=== PATIENT | male | born 1940 | race Caucasian/White ===

== ENCOUNTER 2017-06-28 19:38 | Emergency (ER) | payer MEDICARE, OTHER ==
[~2017-06-28] VITALS: Ht 172.7 cm; Wt 81.7 kg
[~2017-06-28 19:38] MED LIST: ASPIRIN EC81 MG PO; BETHANECHOL CHL25 MG PO; COZAAR50 MG PO; FLOMAX0.4 MG PO; GLIPIZIDE XL5 MG PO; KEFLEX500 MG PO; LANTUS SOL100 UNIT/1 SUB-Q; LASIX20 MG PO; METFORMIN HCL500 MG PO; METOPROLOL TART25 MG PO; NORCO 5-325 TA1 EACH PO; NOVOLIN N100 UNIT/1 SQ; NOVOLOG100 UNITS/ SUB-Q; PROTONIX40 MG PO; REQUIP0.25 MG PO; SIMVASTATIN20 MG PO
--- NOTE | 2017-06-28 22:27 | EKG ---
[facility] [address] [facility] [place] [address] Signed Sinus rhythm with premature atrial complexes in a pattern of bigeminy ST \T\ T wave abnormality, consider inferior ischemia Abnormal ECG No previous ECGs available Confirmed by DRAGAN BHAKTA MD ([id number]) on 06/28/2017 10:26:49 PM Electronically Signed By: DRAGAN BHAKTA MD 06/28/17 2227 PATIENT NAME: MICHELLE FELIX Electrocardiogram DATE OF : 40 PHYSICIAN: DRAGAN BHAKTA MD REPORT #: [id number] REPORT IS CONFIDENTIAL AND NOT TO BE RELEASED WITHOUT AUTHORIZATION
== END 2017-06-28 22:25 | disposition home or self-care (01) ==
LOC: ED 19:38
DX: R53.1 Weakness (principal); E11.9 Type 2 diabetes mellitus without complications; E78.00 Pure hypercholesterolemia, unspecified; I10 Essential (primary) hypertension; K21.9 Gastro-esophageal reflux disease without esophagitis; J44.9 Chronic obstructive pulmonary disease, unspecified; Z95.1 Presence of aortocoronary bypass graft; Z87.891 Personal history of nicotine dependence; Z79.899 Other long term (current) drug therapy; Z79.82 Long term (current) use of aspirin
CPT/HCPCS: 71010; 80053; 81001; 83605; 84484; 85025; 87502; 93005; 93010; 94640; 96360; 99284; J7030

== ENCOUNTER 2017-07-10 14:47 | Emergency (ER) | payer MEDICARE, OTHER ==
[~2017-07-10] VITALS: Ht 172.7 cm; Wt 79.4 kg
== END 2017-07-10 15:12 | disposition home or self-care (01) ==
LOC: ED 14:47
DX: E11.9 Type 2 diabetes mellitus without complications (principal); I10 Essential (primary) hypertension; K21.9 Gastro-esophageal reflux disease without esophagitis; J44.9 Chronic obstructive pulmonary disease, unspecified; E78.00 Pure hypercholesterolemia, unspecified; Z87.891 Personal history of nicotine dependence; Z95.1 Presence of aortocoronary bypass graft; Z90.49 Acquired absence of other specified parts of digestive tract; Z79.4 Long term (current) use of insulin; Z79.899 Other long term (current) drug therapy; Z79.82 Long term (current) use of aspirin
CPT/HCPCS: 99283

== ENCOUNTER 2019-03-24 00:16 | Emergency (ER) | payer MEDICARE, OTHER ==
[~2019-03-24] VITALS: Ht 172.7 cm; Wt 79.4 kg
[~2019-03-24 00:16] MED LIST changes: +24 HOUR ALLERG9.9 ML NAS; +B COMPLEX1 EACH PO; +CYCLOBENZAPRINE10 MG PO; +FINASTERIDE5 MG PO; +LANTUS100 UNITS/ SUB-Q; +NOVOLOG FL100 UNIT/1 SUB-Q; +SYMBICORT 16010.2 GM INH; +ULTRAM50 MG PO
== END 2019-03-24 01:25 | disposition home or self-care (01) ==
LOC: ED 00:16
PROC: 0T2BX0Z Change Drainage Device in Bladder, External Approach (ICD-10-PCS; principal; 2019-03-24)
PROC: 4A0D7LZ Measurement of Urinary Volume, Via Natural or Artificial Opening (ICD-10-PCS; 2019-03-24)
DX: R33.9 Retention of urine, unspecified (principal); I10 Essential (primary) hypertension; E11.9 Type 2 diabetes mellitus without complications; K21.9 Gastro-esophageal reflux disease without esophagitis; Z87.891 Personal history of nicotine dependence; Z79.4 Long term (current) use of insulin; Z79.82 Long term (current) use of aspirin; Z79.899 Other long term (current) drug therapy
CPT/HCPCS: 51702; 51798; 81001; 99283-25

== ENCOUNTER 2019-03-29 02:44 | Inpatient (IN) | payer MEDICARE, OTHER ==
[~2019-03-29] VITALS: Ht 172.7 cm; Wt 81.7 kg
--- OUTSIDE RECORDS SUMMARY | 2019-03-29 02:46 | XMS ---
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 Leticia VISIT COUNT (12 MO.) 3 [facility] TOTAL 3 NOTE: Visits indicate total known visits. 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 05/11/2018 16:47 [facility] TYPE: Emergency COMPLAINT: - NECK PAIN NON INJURY DIAGNOSES: - Type 2 diabetes mellitus without complications - Chronic obstructive pulmonary disease, unspecified - Essential (primary) hypertension - termite exterminator (current) use of insulin - Cervicalgia - detention (current) use of aspirin - Gastro-esophageal reflux disease without esophagitis - Other laborer marine terminal (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
[2019-03-29] MEDS ORDERED: FLOMAX0.4 MG PO (03:05)
--- NOTE | 2019-03-29 05:44 | NUR ---
PATIENT ARRIVED TO THE FLOOR VIA STRETCHER. PATIENT WAS ABLE TO PIVOT TRANSFER FROM STRETCHER TO BED WITH ASSISTANCE. PATIENT STRUGGLES TO FOLLOW INSTRUCTIONS AT TIMES. PATIENTS ADMISSION COMLETED. PATIENTS IV INFUSING PER ORDER. PATIENT IS CONFUSED AT TIMES. PATIENTS BED ALARM IS ON FOR SAFETY. PATIENT DENIES ANY NEEDS. CALL LIGHT IN REACH.
--- NOTE | 2019-03-29 07:19 | NUR ---
BEDSIDE REPORT RECEIVED PT RESTING SOUNDLY. IV INFUSING, BED ALARM SET, TELE IN SR. PT APPEARS COMFORTABLE
--- NOTE | 2019-03-29 08:05 | NUR ---
PATIENT RESTING IN BED. CLEANED FACE AND HANDS. ICE WATER GIVEN. CALL LIGHT WITHIN REACH. NO OTHER NEEDS AT THIS TIME
--- NOTE | 2019-03-29 09:21 | NUR ---
SPOKE WITH PATIENT IN ROOM. PATIENT ABLE TO ANSWER SOME QUESTIONS, SOME STATES "I'M NOT SURE". PATIENT HAS A HISTORY OF DEMENTIA. PATIENT LIVES WITH HIS GLENN, IS RETIRED, USES A CANE, STATES HE HAS A WALKER AT HOME BUT DENIES HE USES IT DAILY. STATES HIS IS COMING IN LATER TODAY AND TO ASK HER QUESTIONS. WILL CONTINUE TO FOLLOW.
--- NOTE | 2019-03-29 09:26 | NUR ---
DR NASSAR NOTIFIED AFTER MORNING ASSESSMENT PT ONLY ABLE TO VOID 50MLS BLADDER SCANNED FOR 436. NO ORDERS AT THIS TIME. PT EATS 100% OF BREAKFAST. DENIES DISCOMFORTS OTHER THAN THE NEED TO VOID
--- NOTE | 2019-03-29 09:35 | NUR ---
PATIENT RESTING IN BED. VITAL SIGNS AND I&O DONE. BERTO BLOOD PRESSURE. RN NOTIFIED. CALL LIGHT WITHIN REACH. NO OTHER NEEDS AT THIS TIME
--- NOTE | 2019-03-29 09:36 | NUR ---
DR NASSAR NOTIFIED PT BP ELEVATED 222/101 HR 104. NO ORDERS GIVEN STATES "OKAY i'LL TAKE A LOOK AT IT"
--- NOTE | 2019-03-29 10:21 | NUR ---
PT ARRIVES, REMAINS AT BEDSIDE. PT INCONT OF STOOL AND A LARGE AMOUNT OF URINE. ASSISTED TO THE TOILET, PT UNSTEADY BUT AMBULATES WELL, PERICARE PROVIDED GOWN AND UNDERGARMENT CHANGED. PT UNABLE TO DEFICATE OR VOID IN THE TOILET. ASSISTED BACK TO THE BED BLADDER SCANNED 436 REMAINS IN THE BLADDER AT THIS TIME. PT RESTING IN BED EYES CLOSED, APPEARS COMFORTABLE.
--- NOTE | 2019-03-29 10:41 | NUR ---
DR NASSAR IN TO SEE PT WIOFE IS PRESENT. BP RECHECKED
--- NOTE | 2019-03-29 10:43 | NUR ---
DR SALCEDO NOTIFIED OF INCONT AND BLADDER SCAN ORDERS JONAS CATH
--- NOTE | 2019-03-29 11:00 | NUR ---
JONAS CATH PLACED PER DR ORDERS. WELL TOLERATED IMMEDIATE RETURN 475 ML CLEAR YELLOW URINE FOLLOWED BY CLOUDY REDDISH. PT RESTING SOUNDLY AT THIS TIME, LEAVES. BAD ALARM SET
--- NOTE | 2019-03-29 11:42 | NUR ---
PT IS RESTING IN BED AT THIS TIME, JONAS DRAINING CLEAR YELLOW URINE. BED ALARM IS SET, LUNCH HAS BEEN ORDERED
--- NOTE | 2019-03-29 12:25 | NUR ---
PT INCONT OF STOOL ASSISTED TO SHOWER. PT TOLERATES FULL SHOWER WELL, RETURNED TO BED SITTING UPRIGHT FOR NOON MEAL.
--- NOTE | 2019-03-29 12:34 | NUR ---
BP DOWN TO 156/79 PT SITTING UPRIGHT SELF FEEDING NOON MEAL
--- NOTE | 2019-03-29 13:13 | NUR ---
PATIENT RESTING IN BED. VITAL SIGNS AND I&O DONE. HIGH TEMPERATURE. RN NOTIFIED. CALL LIGHT WITHIN REACH. NO OTHER NEEDS AT THIS TIME
--- NOTE | 2019-03-29 14:35 | NUR ---
PT WAS GIVEN A WARM BLANKET PRIOR TO VITALS. WILL MONITOR TEMP
--- NOTE | 2019-03-29 15:22 | EKG ---
[facility] [address] [facility] [place] [address] Signed Normal sinus rhythm ST \T\ T wave abnormality, consider inferior ischemia Abnormal ECG When compared with ECG of 31-MAR-2018 11:25, No significant change was found Confirmed by DASHA NASSAR DO ([id number]) on 03/29/2019 3:22:37 PM Electronically Signed By: DASHA NASSAR DO 03/29/19 1522 PATIENT NAME: MARYCARMENCLAUDETTEMICHELLE VILLA Electrocardiogram DATE OF : 40 PHYSICIAN: DASHA NASSAR DO REPORT #: [id number] REPORT IS CONFIDENTIAL AND NOT TO BE RELEASED WITHOUT AUTHORIZATION
--- NOTE | 2019-03-29 16:41 | NUR ---
SPOKE WITH PATIENT AND IN ROOM. PATIENT LIVES WITH . HE DOES NOT DRIVE, SHE DRIVES HIM TO APPOINTMENTS. SHE STATES SHE HELPS HIM WITH HIS MEDICATIONS. SHE STATES HE DOES WELL GETTING AROUND HOME, USES A CANE AND A WALKER. USUALLY THE WALKER IS USED FOR LONGER DISTANCES WHEN THEY GO OUT. SHE STATES HE SEES DR DUNN IN [facility] ABOUT TWICE A YEAR, OTHERWISE DR PEREZ. THEY GET [facility] MED[facility]OUGH [facility]. SHE PLANS TO TAKE HIM HOME AT DISCHARGE. SHE HAS NO QUESTIONS AT THIS TIME, STATING "EVERYONE IS DOING A GOOD JOB EXPLAINING THINGS". DISCUSSED FOR HER TO FEEL FREE TO ASK ANY QUESTIONS. TO KNOW DIAGNOSIS, TEST RESULTS, MEDICATIONS AND SIDE EFFECTS, AND FOLLOW UP PLAN BEFORE PATIENT IS DISCHARGED. NO FURTHER QUESTIONS AT THIS TIME. WILL CONTINUE TO FOLLOW.
[2019-03-29] MEDS ORDERED: NOVOLOG100 UNIT/2 SUB-Q (17:09)
--- NOTE | 2019-03-29 17:15 | NUR ---
MED REC COMPLETE
--- NOTE | 2019-03-29 17:20 | NUR ---
PATIENT SITTING UP IN CHAIR. IN ROOM. VITAL SIGNS AND I&O DONE. CALL LIGHT WITHIN REACH. NO OTHER NEEDS AT THIS TIME
--- NOTE | 2019-03-29 17:30 | NUR ---
PT UP TO THE CHAIR IS PRESENT IN THE ROOM
--- NOTE | 2019-03-29 18:09 | NUR ---
PT CONTINUES UP IN THE CHAIR EATING EVENING MEAL. DENIES DISCOMFORTS. HAS WENT HOME FOR THE EVENING CHAIR ALARM TO BE USED
--- NOTE | 2019-03-29 19:45 | NUR ---
RECEIVED REPORT FROM DAY SHIFT RN. PATIENT IS RESTING IN BED WITH EYES CLOSED, RR 17. CALL LIGHT IN REACH. ALARM ON FOR SAFETY.
--- NOTE | 2019-03-29 20:07 | NUR ---
PATIENT MOVED TO ROOM 119 FROM 121. PATIENTS NOTIFIED. PATIENT OREIENTED TO NEW ROOM. NO NEEDS NOTED. CALL LIGHT IN REACH. AND ALARM ON FOR SAFETY.
--- NOTE | 2019-03-29 21:01 | NUR ---
PATIENT ASSESMENT COMPLETED. PATIENT IS RESTING IN BED WATCHING TV. PATIENT DENIES ANY PAIN. PATIENTS VITALS TAKEN AND RECORDED. PATIENTS JONAS EMPTIED, JONAS CARE COMPLETED. PATIENTS ATTEND IS DRY. PATIENTS INTAKE AND OUPUT RECORDED. PATIENTS EVENING MEDCIATIONS GIVEN PER ORDER. PATIENT IS OREINTED TO ALL BUT DATE AND TIME. PATIENTS RECOLLECTION OF EVENTS LEADING UP TO ADMISSION ARE SPOTTY AT TIMES. PATIENT DENIES ANY NEEDS. CALL LIGHT IN REACH. ALARM ON FOR SAFETY.
--- NOTE | 2019-03-29 23:04 | NUR ---
PATIENT IS RESTING IN BED WATCHING TV. PATIENT DENIES ANY NEEDS. CALL LIGHT IN REACH AND BED ALARM ON FOR SAFETY.
--- NOTE | 2019-03-29 23:15 | NUR ---
PATIENT GIVEN SCHEDULED MEDICATIONS. PATIENT REPOSITIONED IN BED. NO NEEDS NOTED. CALL LIGHT IN REACH. ALARM ON FOR SAFETY.
--- NOTE | 2019-03-30 00:58 | NUR ---
PATIENT IS RESTING IN BED WITH EYES CSLOED, RR 17. CALL LIGHT IN REACH.
--- NOTE | 2019-03-30 02:51 | NUR ---
PATIENT REPOSITIONED IN BED. PATIENT PROVIDED WITH PAIN MEDICATION. PATIENT DENIES ANY NEEDS. PATIENTS CALL LIGHT IN REACH AND ALARM ON FOR SAFETY.
--- NOTE | 2019-03-30 04:58 | NUR ---
PATIENT RESTED WELL THROUGHOUT THE SHIFT. PATIENT IS ON AN ADA DIET, TOELRATING IT WELL, AND NO COMPLAINTS OF NAUSEA NOTED. PATIENT IS A 1PA W/FWW. PATIENT HAS JONAS IN PLACE. PATIENT IS WORKING WITH PT/OT. PATIENT HAS BS CHECKS PER ORDER. PATIENT HAS IV INFUSING. PATIENT IS CONFUSED AT TIMES. BED ALARM ON FOR SAFETY.
--- NOTE | 2019-03-30 05:22 | NUR ---
PATIENTS VITALS TAKEN AND RECORDED. PATIENT WAS ABLE TO REPOSTION HOMSLEF IN BED. PATIENTS JONAS EMPTIED AND JONAS CARE COMPLETED. PATIENTS INTAKE AND OUPUT RECORDED. PATIENT DENIES ANY NEEDS. CALL LIGHT IN REACH AND BED ALARM ON FOR SAFETY.
--- NOTE | 2019-03-30 06:59 | NUR ---
PT RESTING SUPINE IN BED ALERT TO VOICE BUT APPEARS DROWSY AND FALLS BACK ASLEEP DURING REPORT. BEDSIDE REPORT RECEIVED FROM STEVIE RAY. CALL LIGHT AND H2O IN REACH. PT APPEARS TO BE SLEPING COMFORTABLY, RR16.
[2019-03-30] MEDS ORDERED: LUBRICANT DRY E15 ML OU (08:08)
[2019-03-30] MEDS ORDERED: VOLTAREN100 GM TOP (08:09)
--- NOTE | 2019-03-30 08:23 | NUR ---
PT SITTING UP IN CHAIR WATCHING TV PREPAIRING TO EAT BREAKFAST. PT ASSESSMENT COMPLETED. AM MEDICATIONS ADMINISTERED. CALL LIGHT AND H2O IN REACH. PT DENIES PAIN, SOB OR ANY OTHER SYMPTOMS OR CONCERNS AT THIS.
--- NOTE | 2019-03-30 10:45 | NUR ---
PT SITTING UP IN CHAIR WORKING WITH THERAPY, PT DENIES NEEDS OR CONCERNS AT THIS TIME. CALL LIGHT AND H2O IN REACH.
--- NOTE | 2019-03-30 12:57 | NUR ---
PUMP ALARMING, INFUSION COMPLETE. NEW BAG OF FLUIDS HUNG. PT RESTING IN CHAIR. NO REQUESTS OR COMPLAINTS. CALL LIGHT WITHIN REACH.
--- NOTE | 2019-03-30 13:55 | NUR ---
PT SITTING UP IN CHAIR EATING LUNCH AND WATCHING TV. AT BEDSIDE. CALL LIGHT AND H2O IN REACH. PT PROVIDED WITH FRESH H2O AND LIGHT. CRANBERRY JUICE WELL PER PT REQUEST. 1 UNIT SS INSULIN ADMINISTERED FOR LUNCH COVERAGE. NO FURTHER NEEDS/CONCERNS VOICED.
--- NOTE | 2019-03-30 16:32 | NUR ---
PT RESTING ON RIGHT LATERAL SIDE EYES CLOSED AND RESPIRATIONS UNLABORED AT 16.
--- NOTE | 2019-03-30 17:11 | NUR ---
PT RESTING IN SEMI FOWLERS POSITION WITH EYES CLOSED AND RESPIRATIONS EVEN AND UNLABORED. PT ALERT TO VOICE, ACCUCHECK PERFORMED AND VSS. PT DENIES FURTHER NEEDS OR CONCERNS.
--- NOTE | 2019-03-30 19:00 | NUR ---
SHIFT REPORT RECEIVED FROM DAYSHIFT STEVIE GARDINER AT BEDSIDE. PT AWAKE AND RESTING IN BED AND WATCHING TELEVISION. IV FLUIDS INFUSING, IV SITE WNL. PT APPEARS COMFORTABLE, DENIES NEEDS. CALL LIGHT IN REACH.
--- NOTE | 2019-03-30 21:20 | NUR ---
CHARGE NURSE ROUNDING. pt RESTING IN BED WATCHING TV. RN IN ROOM. NO REQUESTS OR COMPLAINTS AT THIS TIME. CALL LIGHT WITHIN REACH. WHITEBOARD UPDATED.
--- NOTE | 2019-03-30 22:00 | NUR ---
ASSESSMENT COMPLETE, SCHEDULED MEDICATIONS GIVEN (SEE EMAR). HX OF MILD DEMENTIA, BUT PT APPEARS A/OX4 AT TIME, REORIENTED TO EVENTS. VSS, PT ON RA, RR WNL. EVENING ACCU CHECK RESULT OF 184, INSULIN SS AND INSULIN LANTUS ADMINISTERED. IV SITE WNL, IV ABX INFUSING. PT DENIES ADDITIONAL NEEDS, CALL LIGHT IN REACH.
--- NOTE | 2019-03-30 22:02 | NUR ---
VITALS AND I&OS DONE AND CHARTED. BEDSIDE TABLE AND CALL LIGHT IN REACH. BLOOD SUGAR DONE WELL AND CHARTED.
--- NOTE | 2019-03-31 00:30 | NUR ---
PT RESTING IN BED, EYES CLOSED. RR WNL. PT APPEARS COMFORTABLE, NO DISTRESS NOTED. IV FLUIDS INFUSING, IV SITE WNL. CALL LIGHT IN REACH, BED ALARM ON FOR SAFETY.
--- NOTE | 2019-03-31 02:07 | NUR ---
ASSESSMENT COMPLETE, PT DISORIENTED TO PLACE AND DATE. PT THOUGHT HE WAS AT AN AIRCRAFT EQUIPMENT LOCATION AND THAT IT WAS APRIL. PT REORIENTED, PLEASANT IN NATURE. BED ALARM ON FOR SAFETY. PT DENIES PAIN AND ADDITIONAL NEEDS. JONAS CATHETER IN PLACE, DRAINING YELLOW URINE. CALL LIGHT IN REACH.
--- NOTE | 2019-03-31 06:00 | NUR ---
when in room to collect vs, bp result of 182/99, map 118. repeat bp on other arm was 184/96, map 118. pt repositioned in bed and given 20 minutes to relax. this rn collected a manula bp, result of 182/94. apical hr 69. dr beyer made aware of elevated bp, verbal order read back to give 0900 scheduled 50 mg po cozaar at this time. no additional orders.
--- NOTE | 2019-03-31 07:15 | NUR ---
PT RESTING SUPINE IN BED EYES CLOSED AND RESPIRATIONS EVEN AND UNLABORED PT APPEARS TO BE SLEEPING COMFORTABLY. BEDSIDE REPORT RECEIVED FROM STEVIE LY. CALL LIGHT AND H2O IN REACH.
--- NOTE | 2019-03-31 08:40 | NUR ---
PT SITTING UP IN CHAIR EATING BREAKFAST AND WATCHING TV. PT ASSESSMENT COMPLETED AND AM MEDICATIONS ADMINISTERED. CALL LIGHT AND H2O IN REACH. PT DENIES PAIN, NAUSEA OR SOB. PT WAS REORIENTED TO DATE AND TIME. PTS AT BEDSIDE.
--- NOTE | 2019-03-31 10:40 | NUR ---
PT SITTING UP IN CHAIR VISITING WITH AND WATCHING TV. CALL LIGHT AND FRESH H2O IN REACH. PT'S STATES SHE FEELS HE IS BACK TO HIS BASELINE MENTALLY AND PHYSICALY AND INQUIRES ABOUT POSSIBLE DISCHARGE SOON. PT AND EDUCATED THAT DISCHARGE WILL LIKELY OCCUR EARLY THIS AFTERNOON. NO FURTHER NEEDS OR CONCERNS VOICED.
[2019-03-31] MEDS ORDERED: KEFLEX500 MG PO (11:20)
[2019-03-31] MEDS ORDERED: FLOMAX0.4 MG PO (11:21)
== END 2019-03-31 12:45 | disposition home or self-care (01) | DRG 689 ==
LOC: ED 02:44 → MS 02:46
PROVIDERS: ADMIT Student in an Organized Health Care Education/Training Program
DX: N39.0 Urinary tract infection, site not specified (principal); G93.41 Metabolic encephalopathy; B96.20 Unspecified Escherichia coli [E. coli] as the cause of diseases classified elsewhere; E11.9 Type 2 diabetes mellitus without complications; N40.1 Benign prostatic hyperplasia with lower urinary tract symptoms; R33.8 Other retention of urine; I10 Essential (primary) hypertension; G25.81 Restless legs syndrome; J44.9 Chronic obstructive pulmonary disease, unspecified; Z79.1 Long term (current) use of non-steroidal anti-inflammatories (NSAID); Z79.82 Long term (current) use of aspirin; Z79.4 Long term (current) use of insulin; Z79.51 Long term (current) use of inhaled steroids; Z79.899 Other long term (current) drug therapy
CPT/HCPCS: 36415; 51798; 71045; 80048; 80053; 81001; 83605; 83735; 85025; 87077; 87088; 87186; 90662; 93005; 93010; 94640; 96365; 97110; 97116; 97162; 97165; 97530; 99284-25; J0696; J1650; J1815; J7030; J7120

== ENCOUNTER 2020-05-30 09:12 | Emergency (ER) | payer MEDICARE, OTHER ==
[~2020-05-30] VITALS: Ht 172.7 cm; Wt 79.8 kg
[~2020-05-30 09:12] MED LIST changes: +LUBRICANT DRY E15 ML OU; +NOVOLOG100 UNIT/2 SUB-Q; +VOLTAREN100 GM TOP
[2020-05-30] MEDS ORDERED: HYDROCHLOROTHIA25 MG PO (09:44)
[2020-05-30] MEDS ORDERED: OMEPRAZOLE20 MG PO (09:45)
[2020-05-30] MEDS ORDERED: ROPINIROLE HC0.25 MG PO (09:45)
--- NOTE | 2020-05-30 12:39 | EKG ---
[facility] [address] [place] [address] Signed Normal sinus rhythm with sinus arrhythmia Left ventricular hypertrophy with repolarization abnormality Abnormal ECG When compared with ECG of 29-MAR-2019 03:08, No significant change was found Confirmed by EMMA SHAH MD ([id number]) on 05/30/2020 12:39:21 PM Electronically Signed By: EMMA SHAH MD 05/30/20 1239 PATIENT NAME: ISIDROMICHELLE VLILA Electrocardiogram DATE OF : 40 PHYSICIAN: EMMA SHAH MD REPORT #: [id number] REPORT IS CONFIDENTIAL AND NOT TO BE RELEASED WITHOUT AUTHORIZATION
== END 2020-05-30 12:19 | disposition short-term general hospital (02) ==
LOC: ED 09:12
DX: I61.1 Nontraumatic intracerebral hemorrhage in hemisphere, cortical (principal); I10 Essential (primary) hypertension; E11.9 Type 2 diabetes mellitus without complications; E78.00 Pure hypercholesterolemia, unspecified; K21.9 Gastro-esophageal reflux disease without esophagitis; J44.9 Chronic obstructive pulmonary disease, unspecified; F03.90 Unspecified dementia, unspecified severity, without behavioral disturbance, psychotic disturbance, mood disturbance, and anxiety; Z79.899 Other long term (current) drug therapy; Z79.4 Long term (current) use of insulin; Z79.82 Long term (current) use of aspirin
CPT/HCPCS: 36415; 51702; 51798; 70450; 71045; 80053; 81001; 84484; 85025; 93005; 93010; 99285-25; C9803; J1953; J2405; J7060; U0003

== ENCOUNTER 2020-07-29 08:15 | Observation (INO) | payer MEDICARE, OTHER ==
[~2020-07-29] VITALS: Ht 172.7 cm; Wt 80.0 kg
[~2020-07-29 08:15] MED LIST changes: +CARVEDILOL6.25 MG PO; +CIPROFLOXACIN500 MG PO; +DICLOFENAC SOD100 G1; +HYDROCHLOROTHIA25 MG PO; +NIFEDIPINE ER30 M1 PO; +OMEPRAZOLE20 MG PO; +QUETIAPINE FUMA25 MG PO; +ROPINIROLE HC0.25 MG PO; +SPIRIVA RESPIMAT4 GM INH
--- OUTSIDE RECORDS SUMMARY | 2020-07-29 08:18 | XMS ---
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 Leticia VISIT COUNT (12 MO.) 3 [facility] TOTAL 3 NOTE: Visits indicate total known visits. ED/UCC VISIT TRACKING (12 MO.) 07/29/2020 08:16 [facility] TYPE: Emergency COMPLAINT: - FAILURE TO THRIVE 07/21/2020 08:48 [facility] TYPE: Emergency COMPLAINT: - WEAKNESS DIAGNOSES: - Weakness - Chronic obstructive pulmonary disease, unspecified - Pain in left hip - Essential (primary) hypertension - Type 2 diabetes mellitus without complications - MCC (current) use of aspirin - MCC (current) use of insulin - Other penitentiary (current) drug therapy - Gastro-esophageal reflux disease without esophagitis 05/30/2020 09:13 [facility] TYPE: Emergency COMPLAINT: - ALTERED LOC, BLOOD PRESSURE PROBLEM DIAGNOSES: - Gastro-esophageal reflux disease without esophagitis - Essential (primary) hypertension - Type 2 diabetes mellitus without complications - 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 DIAGNOSES: - Intracranial hemorrhage 06/17/2020 07:06 [facility] [place] TYPE: Inpatient DIAGNOSES: - Intracranial hemorrhage 06/04/2020 14:40 [facility] [place] TYPE: Physical Therapy DIAGNOSES: - Intracranial hemorrhage - Anal abscess - Nontraumatic intracerebral hemorrhage, unspecified - Urge incontinence 05/30/2020 13:20 [facility] TYPE: Internal Medicine DIAGNOSES: - Hyperlipidemia, unspecified - Nontraumatic intracerebral hemorrhage, unspecified - Unspecified dementia without behavioral disturbance - Other localized visual field defect, right eye - Acute kidney failure, unspecified - Essential (primary) hypertension - Hemorraghic stroke - Obstructive sleep apnea (adult) (pediatric) - Benign prostatic hyperplasia with lower urinary tract symptoms - Atherosclerosis of coronary artery bypass graft(s) without angina pectoris - Feeling of incomplete bladder emptying - Type 2 diabetes mellitus with other diabetic kidney complication - Dependence on other enabling machines and devices - Gastro-esophageal reflux disease without esophagitis - Presence of aortocoronary bypass graft - superintendent marine oil terminal (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
--- NOTE | 2020-07-29 11:40 | NUR ---
PT TO MEDSUR VIA STRETCHER ASSISTED TO BED ORIENTED TO ROOM AND CALL LIGHT. PT IS UPBEAT AND COOPERATIVE. AGREES HE IS COMFORTABLE STATES HE JUST ATE IN THE ER BEFORE COMING TO MED-SURG.
--- NOTE | 2020-07-29 12:30 | NUR ---
PT UP TO BSC UNABLE TO MOVE HIS BOWEL. DENIES DISCOMFORT STATES HE "JUST THOUGHT HE HAD TO GO" RESTING IN BED AT THIS TIME BED ALARM SET FOR SAFETY.
--- NOTE | 2020-07-29 14:27 | NUR ---
PATIENT IN BED RESTING WITH EYES CLOSED. FRESH WATER GIVEN. CALL LIGHT IN REACH. NO FURTHER NEEDS AT THIS TIME.
[2020-07-29] MEDS ORDERED: LANTUS SOL100 UNIT/1 SUB-Q (14:44)
--- NOTE | 2020-07-29 15:00 | NUR ---
PT RESTING EYES CLOSED APPEARS TO BE SLEEPING COMFORTABLY
--- NOTE | 2020-07-29 16:24 | EKG ---
[facility] [address] [facility] [place] [address] Signed Sinus bradycardia with premature atrial complexes Nonspecific ST abnormality Abnormal ECG When compared with ECG of 21-JUL-2020 08:59, premature ventricular complexes are no longer present premature atrial complexes are now present Confirmed by EMMA SHAH MD ([id number]) on 07/29/2020 4:24:33 PM Electronically Signed By: EMMA SHAH MD 07/29/20 1624 PATIENT NAME: MICHELLE FELIX Electrocardiogram DATE OF : 40 PHYSICIAN: EMMA SHAH MD REPORT #: [id number] REPORT IS CONFIDENTIAL AND NOT TO BE RELEASED WITHOUT AUTHORIZATION
--- NOTE | 2020-07-29 17:12 | NUR ---
PT IN TO SEE HIM THEN LEAVES FOR THE EVENING. PT ASSISTED TO SIT UPRIGHT IN BED FOR EVENING MEAL
--- NOTE | 2020-07-29 18:05 | NUR ---
PATIENT UP TO BSC AND BACK TO BED, 1PA FWW. CALL LIGHT IN REACH. NO FURTHER NEEDS AT THIS TIME.
--- NOTE | 2020-07-29 18:40 | NUR ---
PT UP TO VOID UNDERGARMENT IS SOAKED. ASSISTED TO CHANGE AND CLEAN UP RETURNS TO RESTING IN BED ALARM IS SET. TV IS ON
--- NOTE | 2020-07-29 19:15 | NUR ---
PT LYING IN BED. SHIFT REPORT RECIEVED BY RN. WHITE BOARD CLEARED. CALL LIGHT IN REACH.
--- NOTE | 2020-07-29 20:09 | NUR ---
PT WANTED TO TALK WITH HIS , THIS RN CALLED , AND SHE ACCEPTED, ASSISTED PT WITH THE PHONE CALL.
--- NOTE | 2020-07-29 20:20 | NUR ---
THIS CIGAR TOBACCO PROCESSING SUPERVISOR AND PRIEST JEFFRY HELPED PATIENT USE THE BEDSIDE COMMODE. PATIENT IS BACK IN BED. BED ALARM ON FOR SAFETY.
--- NOTE | 2020-07-29 20:31 | NUR ---
PT SETTING OFF ALARM, BUT LEANING OVER FOR DRINKS WATER. NOTED PT FUMBLING WITH HIS UNDERWEAR BRIEF. ASK IF HE WANTED SOMETHING, HE SAID HAD TO USE THE BATHROOM. WITH THE ASSIST OF IS SUPPORT ANALYST, WALKER, AND BSC, AND CUEING HE GOT UP WITH MODERATE AMOUNT ASSISTANCE. UNABLE TO SIT UP WITHOUT HELP, BUT ABLE TO STAND UP WITH MIMINAL ASSISTANCE. VOIDED IN BSC, STATED RELIEF. NEEDED HELP TO PUT HIS LEGS INTO BED. UNKNOWN IF CUEING WAS REQUIRED DUE NOT BEING HOME, AND THE UNKNOWN NEEDS STAFF WANTED HIM TO DO OR BECAUSE OF MEMORY ISSUES. BACK TO BED, WARM BLANKET PROVIDED, ALARM IN PLACE.
--- NOTE | 2020-07-29 21:52 | NUR ---
PT LYING IN BED. SCHEDULED MEDS GIVEN. BP IN 150'S. HR APICAL 62. PT DENIES PAIN. ASSESSMENT COMPLETE. I AND O'S DONE. ALERT AND ORIENTED. LUNG SOUNDS DIM. PT STATES LAST BM WAS A COUPLE DAYS AGO. IV SALINE LOCKED. CALL LIGHT IN REACH. NO FURTHER NEEDS.
--- NOTE | 2020-07-29 22:38 | NUR ---
THIS CERTIFIED TECHNICIAN SPECIALIST ASSISTED RN EMMA TO HELPED PATIENT GET UP TO USE THE URINAL. PATIENT IS BACK IN BED. BED ALARM ON FOR SAFETY.
--- NOTE | 2020-07-29 22:43 | NUR ---
2P ASSIST/FWW WITH BEDSIDE URINAL. TOLERATED WELL. NO S/S OF SOB. REPOSITIONED PT IN BED. CALL LIGHT IN REACH. BED ALARM ON.
--- NOTE | 2020-07-30 00:10 | NUR ---
PT LYING IN BED. EYES CLOSED. RR WNL WITH UNLABORED BREATHING. SCHEDULED MEDS GIVEN. CALL LIGHT IN REACH.
--- NOTE | 2020-07-30 02:00 | NUR ---
IV ALARMING. BED ALARM NOT SOUNDING. WENT INTO ROOM AND FOUND PT LYING AT THE EDGE OF BED. PT PULLED IV OUT. TIP INTACT. PT STATED THAT HE NEEDED TO GO TO THE BATHROOM BUT WAS INCONTINENT OF URINE. BREAKING MACHINE OPERATOR ASSISTED WITH NEW SHEETS. REPLACED GOWN AND DEPENDS. NEW IV INSERTED BY NURSE KYM, TOLERATED WELL. PT ORIENTED X3. REPOSITIONED PT IN BED. VS STABLE. SYSTOLIC 160'S. BED ALARM ON. CALL LIGHT IN REACH.
--- NOTE | 2020-07-30 02:59 | NUR ---
PT LYING IN BED. EYES CLOSED. RR WNL WITH UNLABORED BREATHING. CALL LIGHT IN REACH.
--- NOTE | 2020-07-30 08:15 | NUR ---
PT QUIET ALERT AT TIME OF SHIFT EXCHANGE. UP TO THE CHAIR FOR MORNING MEAL PT IS SELF FEEDING AND ANSWERS "GOOD" WHEN ASKED HOW HE'S DOING.
--- NOTE | 2020-07-30 09:37 | NUR ---
PT UP IN THE CHAIR TOLERATES 100% OF MORNING MEAL. P/T IN TO WORK WITH HIM THEN RETURNS TO THE CHAIR ALARM IN PLACE AND PT VISIBLE TO RN STATION FOR SAFETY
[2020-07-30] MEDS ORDERED: ROPINIROLE HC0.25 MG PO (10:17)
[2020-07-30] MEDS ORDERED: TAMSULOSIN HCL0.4 MG PO (10:19)
[2020-07-30] MEDS ORDERED: MIRALAX17 GM PO (10:20)
[2020-07-30] MEDS ORDERED: SYMBICORT 16010.2 GM INH (10:20)
[2020-07-30] MEDS ORDERED: MILK OF MA400 MG/5 M PO (10:21)
[2020-07-30] MEDS ORDERED: SENOKOT-S TABL1 EACH PO (10:21)
--- NOTE | 2020-07-30 10:22 | NUR ---
MED REC COMPLETE
--- NOTE | 2020-07-30 10:30 | NUR ---
Spoke with pt and his . Pt defers to for decisions and state s he will go with whatever she thinks. He is able to answer questions appropriately, has problems with some words. states she has COPD and on 02 and has breast cancer. Pt declined after return home from hospital. She is unable to care for him, especially at night when he needs assist getting up and onto toilet. Pt doesn't want to go to a SNF but agrees as he is aware is unable to provide his care. The y had a family member staying with them, but she had to leave this week Will contact [facility] as this is familys place of choice, and request placement.
--- NOTE | 2020-07-30 10:31 | NUR ---
PATIENT WORKING WITH PT AT THIS TIME. CALL LIGHT IN REACH. NO FURTHER NEEDS AT THIS TIME.
--- NOTE | 2020-07-30 11:11 | NUR ---
PT IN TO VISIT. DC RESIDENTIAL PROPERTY MANAGER NOTIFIED SHE IS MEETING WITH PT AND CURRENTLY
--- NOTE | 2020-07-30 13:38 | NUR ---
PT CONTINUES UP IN THE CHAIR SELF FEEDING NOON MEAL.
--- NOTE | 2020-07-30 13:49 | NUR ---
PATIENT TO BSC THEN TO BED, 2PA FWW. FRESH WATER GIVEN. PATIENT REFUSED SHOWER. GANGA CARE DONE. WASH CLOTH GIVEN EARLIER AND HAIR COMBED. CALL LIGHT IN REACH. NO FURTHER NEEDS AT THIS TIME.
--- NOTE | 2020-07-30 16:03 | NUR ---
in to visit pt again.
--- NOTE | 2020-07-30 17:52 | NUR ---
PATIENT IN BED WATCHING TV. CALL LIGHT IN REACH. NO FURTHER NEEDS AT THIS TIME. VITALS AND I&O'S CHARTED.
--- NOTE | 2020-07-30 18:15 | NUR ---
PT IN FOR A VISIT THIS EVENING SITS WITH PT FOR A LONG TIME. PT IS CONFUSED BUT UPBEAT AND TALKATIVE. SPENDS MOST OF THE DAY IN THE CHAIR ASSISTED TO BED FOR EVENING MEAL. SELF FEEDING AT THIS TIME
--- NOTE | 2020-07-30 19:22 | NUR ---
PT SITTING UP IN BED. SHIFT REPORT RECIEVED BY RN. WHITE BOARD CLEARED. CALL LIGHT IN REACH. FAMILY MEMBER IN ROOM.
--- NOTE | 2020-07-30 19:23 | NUR ---
PT LYING IN BED. SHIFT REPORT RECIEVED BY RN. CALL LIGHT IN REACH.
--- NOTE | 2020-07-30 20:00 | NUR ---
ASSISTED PT TO USE URINAL. 2P WITH FWW BY BEDSIDE. PT TOLERATED WELL. REPOSITIONED PT IN BED. CALL LIGHT IN REACH. NO FURTHER NEEDS. BED ALARM ON.
--- NOTE | 2020-07-30 20:40 | NUR ---
PT LYING IN BED. REORIENTED TO PLACE. REPOSITIONED PT IN BED. SCHEDULED MEDS GIVEN. ASSESSMENT COMPLETE. I AND O'S DONE. VS STABLE. ASSISTED PT TO USE URINAL. CALL LIGHT IN REACH. NO FURTHER CONCERNS.
--- NOTE | 2020-07-30 22:00 | NUR ---
BED ALARM SOUNDING. PT CONFUSED AND TRYING TO GET OUT OF BED. BELIEVES HIS IS GOING TO PICK HIM UP ON THE BUS AT 10 PM. ATTEMPTED TO REORIENT. PT APPEARS TO BE CONTENT AT THIS TIME. ASSISTED TO REPOSITION IN BED. SIPS OF WATER PROVIDED. BED ALARM FOR SAFETY. PT IN VIEW OR NURSES STATION.
--- NOTE | 2020-07-31 02:40 | NUR ---
REPOSITIONED PT IN BED. REPLACED SHEETS AND GOWN. REORIENTED TO TIME AND PLACE. ASSESMENT COMPLETE. CALL LIGHT IN REACH.
--- NOTE | 2020-07-31 03:49 | NUR ---
PT LYING IN BED.EYES CLOSED. RR WNL WITH UNLABORED BREATHING. BED ALARM ON. CALL LIGHT IN REACH.
--- NOTE | 2020-07-31 06:36 | NUR ---
PT LYING IN BED. EYES CLOSED. RR WNL WITH UNLABORED BREATHING. REPLACED DEPENDS. REPOSITIONED PT IN BED. REORIENTED PT TO PLACE. SCHEDULED MEDS GIVEN. I AND O'S COMPLETE. CALL LIGHT IN REACH. BED ALARM ON. NO FURTHER NEEDS.
--- NOTE | 2020-07-31 07:33 | NUR ---
REPORT RECIEVED FROM NIGHT RN.
--- NOTE | 2020-07-31 08:16 | NUR ---
MORNING ASSESSMENT IS COMPLETE. PATIENT IS RESTING IN BED COMFORTABLY ON LEFT SIDE WITH REGULAR RESPIRATIONS. IV CEFEPIME IS INFUSING.
--- NOTE | 2020-07-31 09:05 | NUR ---
PATIENT UP TO COMMODE WITH 2 MAX ASSIST, BACK TO BED WITH 2 MAX ASSIST.
--- NOTE | 2020-07-31 09:15 | NUR ---
PHYSICAL THERAPY IN TO WORK WITH PATIENT.
--- NOTE | 2020-07-31 10:35 | NUR ---
PATIENT AWAKE IN CHAIR, VITALS AND I&OS CHARTED. PATIENT REQUEST BSC. 2PA, PATIENT UNSTEADY ON FEET, UNABLE TO HAVE BM. BACK TO CHAIR, LEGS ELEVATED, WARM BLANKET PROVIDED. O/T IN ROOM. CALL LIGHT IN REACH
--- NOTE | 2020-07-31 10:50 | NUR ---
PATIENT UP TO BATHROOM TO VOID. LEFT ARM IV REMOVED AND COBAN PLACED. PATIENT IS DRESSED AND PERSONAL ITEMS PACKED. PATIENT IS RESTING IN CHAIR WITH BLANKETS.
--- NOTE | 2020-07-31 10:58 | NUR ---
Updated therapy notes faxed to Chary at [facility] in [place]. Awaiting acceptance by [facility] of this patient.
--- NOTE | 2020-07-31 11:14 | NUR ---
PATIENT IS IN CHAIR, VISITING WITH FAMILY.
--- NOTE | 2020-07-31 11:24 | NUR ---
Called and left message with lseley hernandez [facility] to confirm she received therapy notes and ask if they could accept this pt.
--- NOTE | 2020-07-31 12:37 | NUR ---
PATIENT WITH 2-PERSON TRANSFER FROM CHAIR TO BED. PATIENT ABLE TO USE URINAL WITH ASSISTANCE, IS NOW RESTING IN BED WITH WARM BLANKET. SPOUSE LEFT ROOM AND PLANS TO RETURN AFTER 4PM TODAY.
--- NOTE | 2020-07-31 13:39 | NUR ---
VITALS AND I&OS CHARTED. NO OTHER NEEDS
--- NOTE | 2020-07-31 14:00 | NUR ---
Notified by Jeanine from [facility], they will accept this pt. Called Dr. Tay and she will complete orders. Called pt's and she will bring clothing and personal items to send with the pt. [facility] will transport and bring a wc for pt.
--- NOTE | 2020-07-31 14:02 | NUR ---
PATIENT IS RESTING IN BED WITH REGULAR RESPIRATIONS.
[2020-07-31] MEDS ORDERED: CARVEDILOL3.125 MG PO (14:24)
--- NOTE | 2020-07-31 14:25 | NUR ---
PT ASLEEP, WILL CHECK BACK
--- NOTE | 2020-07-31 14:27 | NUR ---
Call from Jemal Solorzano has a new policy all pts must be tested for covid on day of admission. Let her know this is not a problem, will request Covid rapid test now. Requested if they could wait to pick pt up until 1530 so there is time for the lab to be completed.
--- NOTE | 2020-07-31 15:42 | NUR ---
REPORT CALLED TO [facility] IN [place].
[2020-07-31] MEDS ORDERED: QUETIAPINE FUMA25 MG PO (16:56)
== END 2020-07-31 15:15 ==
LOC: ED 08:15 → MS 08:17
PROVIDERS: ADMIT Internal Medicine; ATTEND Internal Medicine
DX: R53.1 Weakness (principal); N39.0 Urinary tract infection, site not specified; B96.20 Unspecified Escherichia coli [E. coli] as the cause of diseases classified elsewhere; E11.9 Type 2 diabetes mellitus without complications; E78.00 Pure hypercholesterolemia, unspecified; I10 Essential (primary) hypertension; K21.9 Gastro-esophageal reflux disease without esophagitis; J44.9 Chronic obstructive pulmonary disease, unspecified; N39.490 Overflow incontinence; R62.7 Adult failure to thrive; F03.90 Unspecified dementia, unspecified severity, without behavioral disturbance, psychotic disturbance, mood disturbance, and anxiety; Z86.73 Personal history of transient ischemic attack (TIA), and cerebral infarction without residual deficits; Z79.82 Long term (current) use of aspirin; Z79.4 Long term (current) use of insulin; Z20.822 Contact with and (suspected) exposure to COVID-19
CPT/HCPCS: 36415; 70450; 71045; 80048; 80053; 81001; 83605; 85025; 87077; 87088; 87186; 92523; 93005; 93010; 94640; 96374; 96376; 97110; 97162; 97166; 97535; 99285-25; C9803; G0378; J0692; J1815; U0003

== ENCOUNTER 2020-11-08 08:38 | Emergency (ER) | payer MEDICARE, OTHER ==
[~2020-11-08] VITALS: Ht 172.7 cm; Wt 79.8 kg
[~2020-11-08 08:38] MED LIST changes: +CARVEDILOL3.125 MG PO; +MILK OF MA400 MG/5 M PO; +MIRALAX17 GM PO; +SENOKOT-S TABL1 EACH PO; +TAMSULOSIN HCL0.4 MG PO
[2020-11-08] MEDS ORDERED: CEPHALEXIN500 MG PO (13:08)
--- NOTE | 2020-11-08 17:14 | EKG ---
[facility] [address] [place] [address] Signed Sinus bradycardia with marked sinus arrhythmia T wave abnormality, consider inferior ischemia Abnormal ECG When compared with ECG of 29-JUL-2020 08:35, premature atrial complexes are no longer present Inverted T waves have replaced nonspecific T wave abnormality in Inferior leads Nonspecific T wave abnormality now evident in Lateral leads Confirmed by DRAGAN BHAKTA MD ([id number]) on 11/08/2020 5:14:28 PM Electronically Signed By: DRAGAN BHAKTA MD 11/08/20 1714 PATIENT NAME: MICHELLE FELIX Electrocardiogram DATE OF : 40 PHYSICIAN: DRAGAN BHAKTA MD REPORT #: [id number] REPORT IS CONFIDENTIAL AND NOT TO BE RELEASED WITHOUT AUTHORIZATION
== END 2020-11-08 15:47 ==
LOC: ED 08:38
DX: N39.0 Urinary tract infection, site not specified (principal); E86.0 Dehydration; Z20.822 Contact with and (suspected) exposure to COVID-19; E11.9 Type 2 diabetes mellitus without complications; E78.00 Pure hypercholesterolemia, unspecified; I10 Essential (primary) hypertension; K21.9 Gastro-esophageal reflux disease without esophagitis; J44.9 Chronic obstructive pulmonary disease, unspecified; Z79.899 Other long term (current) drug therapy; Z79.82 Long term (current) use of aspirin; Z79.4 Long term (current) use of insulin
CPT/HCPCS: 51798; 71045; 80053; 81001; 83605; 84484; 85025; 87088; 93005; 93010; 99285-25; C9803; J0696; J7030; U0003

== ENCOUNTER 2021-02-21 10:06 | Emergency (ER) | payer MEDICARE, OTHER ==
[~2021-02-21] VITALS: Ht 172.7 cm; Wt 79.8 kg
[~2021-02-21 10:06] MED LIST changes: +CEPHALEXIN500 MG PO
[2021-02-21] MEDS ORDERED: CARVEDILOL12.5 MG PO (10:35)
[2021-02-21] MEDS ORDERED: METFORMIN HCL500 MG PO (10:39)
[2021-02-21] MEDS ORDERED: NOVOLOG FL100 UNIT/1 SUB-Q (10:42)
== END 2021-02-21 14:22 | disposition home or self-care (01) ==
LOC: ED 10:06
DX: R53.1 Weakness (principal); R00.1 Bradycardia, unspecified; E11.9 Type 2 diabetes mellitus without complications; E78.00 Pure hypercholesterolemia, unspecified; I10 Essential (primary) hypertension; K21.9 Gastro-esophageal reflux disease without esophagitis; J44.9 Chronic obstructive pulmonary disease, unspecified; Z79.899 Other long term (current) drug therapy; Z79.4 Long term (current) use of insulin; Z79.82 Long term (current) use of aspirin
CPT/HCPCS: 80053; 81001; 85025; 99284

== ENCOUNTER 2023-11-22 17:20 | Inpatient (IN) | payer MEDICARE, OTHER ==
[~2023-11-22] VITALS: Ht 172.7 cm; Wt 69.7 kg
[~2023-11-22 17:20] MED LIST changes: +CARVEDILOL12.5 MG PO; +METFORMIN HCL1000 MG PO
[2023-11-22 17:36] LABS: MCV 81.6 fl (81-99); PLATELET COUNT 305 K/uL (140-440)
[2023-11-22 17:38] LABS: HEMATOCRIT 40.9 % (35.0-50.0); HEMOGLOBIN 13.8 g/dL (12.0-18.0); MCH 27.4 (27-36); MCHC 33.6 g/dl (30-36); RBC 5.01 M/ul (4.3-5.7); RDW 14.4 (10.5-15.0)
[2023-11-22 17:51] LABS: ALBUMIN 2.9 g/dL (3.4-5.0); ALBUMIN/GLOBULIN RATIO 0.76 (1.1-2.4); ANION GAP 11.1 (7-21); BILIRUBIN, TOTAL 0.9 ng/dL (0.2-1.0); BUN/CREATININE RATIO 21.09 (6.0-28.6); CALCIUM 9.7 mg/dL (8.5-10.1); CREATININE, SERUM 1.28 mg/dL (0.70-1.30); POTASSIUM 4.1 mmol/L (3.5-5.1); PROTEIN, TOTAL 6.7 g/dL (6.4-8.2)
[2023-11-22 17:54] LABS: LACTIC ACID, BLOOD 1.3 mmol/L (0.4-2.0)
[2023-11-22 17:58] LABS: BANDS, MANUAL DIFF 2; LYMPHOCYTES, MANUAL DIFF 6; MONOCYTES, MANUAL DIFF 12; NEUTROPHILS, MANUAL DIFF 80
[2023-11-22 18:23] LABS: BILIRUBIN, URINE NEGATIVE (negative); BLOOD/HGB, URINE NEGATIVE (Negative); KETONE, URINE NEGATIVE (Negative); LEUK ESTERASE, URINE NEGATIVE (negative); NITRITE, URINE NEGATIVE (negative); PH, URINE 6.5 (5-7)
[2023-11-22 18:40] LABS: CRYSTALS, URINE NONE SEEN (0-1+); EPITHELIAL CELLS, URINE SQUAMOUS 1+ /lpf (0-1+); RED BLOOD CELLS, URINE 0-1 /hpf (0-5); WHITE BLOOD CELLS, URINE 0-1 /HPF (0-5)
[2023-11-22 18:41] LABS: BACTERIA, URINE NONE SEEN /hpf (negative); CASTS, URINE HYALINE 1+ \\lpf; COLLECTION TYPE, URINE CLEAN CATCH; REFLEX CULTURE, URINE No (No)
[2023-11-22 19:46] LABS: INFLUENZA B NAA NEGATIVE (NEGATIVE); RESPIRATORY SYNCYTIAL VIR NAA NEGATIVE (NEGATIVE)
[2023-11-22] MEDS ORDERED: IBLOOD GLUCOSE TEST STRIP 1 EA TEST XX PRN (21:00)
[2023-11-22] MEDS ORDERED: SODIUM CHLORIDE 0.9% 1,000 ML IV SCH ×2 (21:00→22:00)
[2023-11-22] MEDS ORDERED: DEXTROSE 50% 50 ML SYR IV PRN ×2 (21:00)
[2023-11-22] MEDS ORDERED: ondansetron HCL 4 MG/2 ML VIAL IV PRN (21:00)
[2023-11-22] MEDS ORDERED: GLUCAGON,HUMAN RECOMBINANT 1 MG/ML VIAL SUB-Q PRN (21:00)
[2023-11-22] MEDS ORDERED: CEFTRIAXONE/SODIUM CHLORIDE 2 GM/100 ML PIGGYBACK IV SCH (21:00)
[2023-11-22] MEDS ORDERED: ACETAMINOPHEN 325 MG TAB PO PRN (21:00)
[2023-11-22] MEDS ORDERED: INSULIN LISPRO 100 UNIT/ML ML SUB-Q SCH (21:00)
[2023-11-22] MEDS ORDERED: DEXTROSE 5% 1,000 ML IV PRN (21:00)
[2023-11-22] MEDS ORDERED: IBLOOD GLUCOSE TEST STRIP 1 EA TEST VI SCH (21:00)
[2023-11-22] MEDS ORDERED: AZITHROMYCIN 500 MG in DEXTROSE 5% 250 ML IV SCH (21:00)
[2023-11-22 21:30] VITALS: BP 135/77
[2023-11-22] MEDS ORDERED: AZITHROMYCIN/DEXTROSE 500 MG/250 ML BAG ONE (21:44)
--- NOTE | 2023-11-22 21:50 | NUR ---
PT WAS ADMITTED FROM ED VIA GOURNEY. ON ROOM AIR, LUNGS DIM AT BAES, MOIST NON PRODUCTIVE COUGH PRESENT, PASSED SWALLOWING EVALUTION WELL, NO COUGH AFTERWARDS. ORAL CARE DONE. COOPERATIVE. COOPERATIVE WITH ADMIT QUESTIONS AND ASSESSMENTS. WAS INCONTINENT OF URINE ON ADMIT, SKIN , CLEAN ATTENDS IN PLACE, REDNESS AT PERIAREA AND SCROTAL AREA. NO OPEN AREAS NOTED. ALERT TO SELF AND PLACE BUT NOT MONTH,DAY, CURRENT [place] PRESIDENT (STATED JAZMIN). AWARE OF NAME ONLY BUT NOT . 2 IV SITED BOTH AC, PATENT, RAC FIELD START PATENT, IVF INFUSING. NO S/SX ADVERSE REACTION TO IV ABX. IX IVF BOLUS INFUSING (ER ORDER), CBG 125, NO COVERAGE NEEDED. TURNED AND REPOSITIONED IN BED, 2PA. VERY STIFF LE. BED ALRM ON PER NURSING JUDGEMENT
[2023-11-22] MEDS ORDERED: BENZONATATE 100 MG CAP PO PRN (22:00)
[2023-11-22] MEDS ORDERED: guaiFENesin 600 MG TABCR PO PRN (22:00)
--- NOTE | 2023-11-22 22:52 | NUR ---
EYES CLOSED, NO RESP DISTRESS, HOB ELEVATED, IVF INFUSING, NO C/O ADVERSE REACTION TO IV ABX. MOVES ARMS, WEAK LE. BED ALARM ON
--- NOTE | 2023-11-22 23:00 | EKG ---
[facility] [address] [place] [address] Signed Sinus tachycardia with premature supraventricular complexes T wave abnormality, consider inferior ischemia Abnormal ECG When compared with ECG of 15-JUL-2023 12:21, premature supraventricular complexes are now present Confirmed by Vanna Cole MD () on 11/22/2023 11:01:12 PM Electronically Signed By: VANNA COLE MD 11/22/23 2300 PATIENT NAME: MICHELLE FELIX Electrocardiogram DATE OF : 40 PHYSICIAN: VANNA COLE MD REPORT #: [id number] REPORT IS CONFIDENTIAL AND NOT TO BE RELEASED WITHOUT AUTHORIZATION
[2023-11-22 23:07] VITALS: BP 135/77
[2023-11-23] VITALS (10 sets, daily range): BP systolic 112–168; BP diastolic 73–86
--- NOTE | 2023-11-23 00:46 | NUR ---
RESTING, OPENS EYES EASILY, NO C/O PAIN, INC OF URINE, COOP WITH CARES, SKIN CCARE AND NEW ATTENDS IN PLACE. BED ALRM ON.
--- NOTE | 2023-11-23 04:07 | NUR ---
resting, took gown off, attends dry, no distress, eyes closed, IVF infusing
--- NOTE | 2023-11-23 04:38 | NUR ---
used call light, clear speech, alert to self only. "I need to pee" stated. pt was already incontinent of large amount of urine, complete bed changed done. cooperative with repositioning up in bed, very stiff torso, helped grabbing onto rails. gross movement legs, not coordinated. turned and repositioned. skin care, clean attends and linen in place. bed alrm for fall precautions. toleratring sips of liquid well. moist non productive cough present. IVF infusing. Denies c/o pain or needding cough med
[2023-11-23 05:27] LABS: BASOPHILS 0.7 % (0-2); EOSINOPHILS 0.2 % (0-6); HEMATOCRIT 41.1 % (35.0-50.0); HEMOGLOBIN 13.8 g/dL (12.0-18.0); MCH 27.5 (27-36); MCHC 33.5 g/dl (30-36); MCV 82.2 fl (81-99); MONOCYTES 14.4 % (0-12); NEUTROPHILS 68.7 % (39-80); PLATELET COUNT 286 K/uL (140-440); RDW 14.4 (10.5-15.0)
[2023-11-23 05:43] LABS: ALBUMIN 2.8 g/dL (3.4-5.0); ALBUMIN/GLOBULIN RATIO 0.7 (1.1-2.4); ANION GAP 11.9 (7-21); BILIRUBIN, TOTAL 0.7 ng/dL (0.2-1.0); BUN/CREATININE RATIO 16.66 (6.0-28.6); CALCIUM 9.2 mg/dL (8.5-10.1); CREATININE, SERUM 1.14 mg/dL (0.70-1.30); MAGNESIUM 1.6 mg/dL (1.8-2.4); PHOSPHORUS, INORGANIC 2.2 mg/dL (2.5-4.9); POTASSIUM 3.9 mmol/L (3.5-5.1); PROTEIN, TOTAL 6.8 g/dL (6.4-8.2)
--- NOTE | 2023-11-23 06:03 | NUR ---
Awake, on room air, more alert, aware of , self and place but not town president or current events. tolerating sips of fluids. moist non productive cough present. lungs clear but dim at bases. moves arms well, helped with repositioning. very stiff torso and LE gross movement, attends in place, dry at this time. HOB elevated watching tv.no c/o pain. fluids and call light at hands reach. Coban placed around both IV sites to prevent accidental dislodgemnt as he was scratching them. instructed, stated understanding
--- NOTE | 2023-11-23 07:02 | NUR ---
REPORT RECEIVED FROM NET COORDINATOR RN ELICIA. PATIENT IS LYING IN BED WITH EYES CLOSED AND RESPIRATIONS ARE EVEN AND UNLABORED. PATIENT CALL LIGHT AND PERSONAL BELONGINGS ARE WITHIN REACH.
[2023-11-23] MEDS ORDERED: NIFEDIPINE ER30 MG PO (07:25)
[2023-11-23] MEDS ORDERED: TIOTROPIUM BRO18 MCG INH (07:26)
--- NOTE | 2023-11-23 08:04 | NUR ---
Patient appears to be in a good mood, very alert. No request from patient at the moment. Call light has been placed within patient reach and board has been updated
[2023-11-23] MEDS ORDERED: POTASSIUM PHOSPHATE 30 MMOL in DEXTROSE 5% 500 ML IV ONE (08:15)
[2023-11-23] MEDS ORDERED: MAGNESIUM SULFATE 4 GM/100 ML BAG IV ONE (08:15)
--- NOTE | 2023-11-23 08:15 | NUR ---
0900 LOVENOX ADMINISTERED PER THE EMAR. 0800 BLOOD SUGAR WAS 125 AND THE PATIENT IS NOT GETTING INSULIN AT THIS TIME. FULL ASSESSMENT COMPLETE AND DOCUMENTED IN THE CHART. PATIENT IS ALERT AND ORIENTED TO SELF AND PLACE AT THIS TIME. FACE WIPED WITH A WARM WASH CLOTH. LUNG SOUNDS ARE CLEAR IN ALL LUNG STOKES BILATERALLY AND IS ON ROOM AIR. CARDIAC WITH NORMAL S1 AND S2 ON AUSCULTATION. BOWEL TONES ARE ACTIVE IN ALL FOUR QUADRANTS. IV IN THE LEFT AC FLUSHED WITH 10 ML NORMAL SALINE AND IS SALINE LOCKED. IV IN THE RIGHT AC FLUSHED WITH 10 ML NORMAL SALINE. IV WITH NS INFUSING AT 125 ML/HR. PATIENT WITH NO COMPLAINTS OF PAIN AT THIS TIME. PATIENT WITH LARGE VOID IN BRIEF. NEW BRIEF IN PLACE. REDNESS NOTED ON THE COCCYX BUT IS BLANCHABLE. PATIENT SENSATION INTACT AND NO COMPLAINTS OF NUMBNESS AND TINGLING AT THIS TIME. PATIENT STATED NO FURTHER NEEDS AT THIS TIME. CALL LIGHT AND PERSONAL BELONGINGS ARE WITHIN REACH.
[2023-11-23] MEDS ORDERED: ENOXAPARIN SODIUM 40 MG/0.4 ML SYR SUB-Q SCH (09:00)
--- NOTE | 2023-11-23 09:14 | NUR ---
LAC IV FLUSHED WITH 10 ML NORMAL SALINE. IV POTASSIUM PHOSPHATE IS INFUSING AT THIS TIME. PATIENT IS EATING BREAKFAST NOW. PATIENT STATED NO FURTHER NEEDS AT THIS TIME. CALL LIGHT AND PERSONAL BELONGINGS ARE WITHIN REACH.
[2023-11-23] MEDS ORDERED: TYLENOL EXTRA500 MG PO (09:40)
[2023-11-23] MEDS ORDERED: CRANBERRY450 M2 PO (09:40)
[2023-11-23] MEDS ORDERED: DULCOLAX10 MG PR (09:41)
[2023-11-23] MEDS ORDERED: FLEET ENEMA133 ML PR (09:42)
[2023-11-23] MEDS ORDERED: GLUCAGON EMERGEN1 MG INJ (09:44)
[2023-11-23] MEDS ORDERED: COZAAR25 MG PO (09:45)
[2023-11-23] MEDS ORDERED: MILK OF MA400 MG/5 M PO (09:47)
[2023-11-23] MEDS ORDERED: PROAIR DIGIHAL90 MCG INH (09:50)
--- NOTE | 2023-11-23 09:51 | NUR ---
MED REC COMPLETE
--- NOTE | 2023-11-23 10:37 | NUR ---
PATIENT IS SITTING UP IN THE RECLINER AND WATCHING TV. PATIENT WAS ASKED SOME QUESTIONS AND PATIENT SEEMS SLIGHTLY CONFUSED. THE DC CONDITIONING YARD SUPERVISOR CALLED THE PATIENT'S AND LEFT A MESSAGE FOR THE PATIENT'S TO CALL THE DC CONDITIONING YARD SUPERVISOR. PATIENT CAME FROM [place] WHERE HE HAS BEEN STAYING UNTIL THE PATIENT CAN GO TO [facility] IN THE FUTURE. PATIENT STATES HIS CAN ANSWER QUESTIONS FOR HIM. POLYMERIZATION SUPERVISOR WILL WAIT FOR THE TO CALL AND HELP QUESTIONS.
--- NOTE | 2023-11-23 10:48 | NUR ---
PATIENT IS SITTING UPRIGHT IN THE CHAIR AT THIS TIME. BRIEF CHANGED DUE TO LARGE VOID. PATIENT WITH NEW GOWN IN PLACE. PATIENT BREAKFAST TRAY REMOVED. PATIENT STATED NO FURTHER NEEDS AT THIS TIME. CALL LIGHT AND PERSONAL BELONGINGS ARE WITHIN REACH. CHAIR ALARM ON.
[2023-11-23] MEDS ORDERED: PHARMACY RENAL DOSE ADJUSTMENT 1 DOSE MISC PO SCH (12:00)
--- NOTE | 2023-11-23 12:32 | NUR ---
PATIENT IS SITTING UPRIGHT IN THE CHAIR WITH TWO VISITORS AT THE BEDSIDE. 1200 INSULIN ADMINISTERED PER THE EMAR. PATIENT VISITORS REQUESTING TO SPEAK WITH CASE MANAGEMENT. PATIENT STATED NO FURTHER NEEDS AT THIS TIME. URINAL AT THE BEDSIDE. PATIENT STATED NO FURTHER NEEDS AT THIS TIME. CALL LIGHT AND PERSONAL BELONGINGS ARE WITHIN REACH.
--- NOTE | 2023-11-23 13:12 | NUR ---
UR CLINICAL REVIEW: [facility] 11/22/23 @ 2049 NO PA NEEDED RETURN TO SNF WHEN MEDICALLY STABLE. MESSAGE SENT TO HOSPITALIST, PATIENT MEETS INPATIENT CRITERIA. MD TO CHANGE STATUS TO INPT.
--- NOTE | 2023-11-23 13:34 | NUR ---
PATIENT IS SITTING UPRIGHT IN THE CHAIR AT THIS TIME. LUNG SOUNDS ARE CLEAR IN THE UPPER LOBES BILATERALLY AND DIMINISHED IN THE BASES BILATERALLY. PATIENT IS ON ROOM AIR WITH NO COMPLAINTS OF PAIN OR SHORTNESS OF BREATH. IV SITE IN THE RAC IS CLEAN, DRY, AND INTACT. NS IS INFUSING AT 75 ML/HR. IV SITE IN THE LAC IS CLEAN, DRY, AND INTACT. POTASSIUM PHOSPHATE IS INFUSING AT 85 ML/HR. PATIENT WITH NO COMPLAINTS OF PAIN OR DISCOMFORT. PATIENT STATED NO FURTHER NEEDS, CALL LIGHT AND PERSONAL BELONGINGS ARE WITHIN REACH.
--- NOTE | 2023-11-23 13:44 | NUR ---
SPOKE TO PATIENT ABOUT THE DISCHARGE PLAN. PATIENT'S FAMILY WOULD WOOD LIKE THE PATIENT TO GO BACK TO [facility]. THE FAMILY UNDERSTANDS THAT MANY NOT BE AN OPTION. THE PATIENT IS IMPROVING SLOWLY AND MAY NEED SNF. THE FAMILY REQUESTED A LIST OF SNFS IN THE AREA AND LET SENIOR PRODUCTION PLANNER KNOW THEIR CHOICE.
[2023-11-23] MEDS ORDERED: IPRATROPIUM BROMIDE 2.5 ML VIAL INH PRN (15:15)
--- NOTE | 2023-11-23 15:15 | NUR ---
PATIENT HAD BOWEL MOVEMENT AND VOID. PATIENT CLEANED UP AND IS BACK IN BED WITH CLEAN LINENS AND CHUX. PATIENT WITH NEW BRIEF IN PLACE AND IS BACK IN BED. PATIENT IS WATCHING TV AT THIS TIME. PATIENT STATED NO FURTHER NEEDS AT THIS TIME. CALL LIGHT AND PERSONAL BELONGINGS ARE WITHIN REACH.
--- NOTE | 2023-11-23 15:51 | NUR ---
PATIENT UP TO THE BEDSIDE COMMODE AND HAD A SMALL BOWEL MOVEMENT. PATIENT IV SITE IN THE LAC FLUSHED WITH 10 ML NORMAL SALINE AND IS SALINE LOCKED. PATIENT MOVED TO ROOM 111. PATIENT BED ALARM IN PLACE. PATIENT STATED NO NEEDS AT THIS TIME. CALL LIGHT AND PERSONAL BELONGINGS ARE WITHIN REACH.
--- NOTE | 2023-11-23 16:14 | NUR ---
SPOKE TO PATIENT AND ABOUT THE DC PLAN. PATIENT WILL GO BACK TO [place] WHEN MEDICALLY STABLE. PATIENT WANTS TO GO TO [facility] IN THE FUTURE. CONCERNED THAT THERE MAY NOT HAVE A BED, SPOKE TO [facility] AND THEY SAY THERE ARE BEDS AT THIS TIME.
--- NOTE | 2023-11-23 16:54 | NUR ---
PATIENT IS SITTING UPRIGHT IN BED AT THIS TIME. PATIENT HAS 2 FAMILY MEMBERS AT THE BEDSIDE. PATIENT STATED NO FURTHER NEEDS AT THIS TIME. CALL LIGHT AND PERSONAL BELONGINGS ARE WITHIN REACH.
--- NOTE | 2023-11-23 18:06 | NUR ---
1700 INSULIN ADMINISTERED PER THE EMAR. PATIENT IS SITTING UPRIGHT IN BED AT THIS TIME AND EATING DINNER. PATIENT STATED NO FURTHER NEEDS AT THIS TIME. CALL LIGHT AND PERSONAL BELONGINGS ARE WITHIN REACH.
--- NOTE | 2023-11-23 18:48 | NUR ---
IN TO DO VITALS. VITALS AND I&O'S DONE AND CHARTED. PATIENT TRYING TO GET OUT OF BED AND CONFUSED ON WHERE HE IS AND WHAT HE IS SUPPOSE TO BE DOING, RN AWARE. BED ALARM ON. CALL LIGHT IN REACH. NO FURTHER NEEDS AT THIS TIME.
--- NOTE | 2023-11-23 19:35 | NUR ---
pt alert to self, trying to get out of bed, Reoriented, . needs several cues to help repositioning in bed. strong hand continuing education instructor. uncoordinated LE. attends in place, dry. hob elevated. Cooperative with assessments. moist non productive cough present. no drainage. lungs clear dim at bases, unable to do CDB even after several cues. aspiation and fall precautions in place, Bed alarm on. Tolerated sips of fluids. IVF infusing RAC. primitivo wrap applied as pt was pulling at IV tubing and IV dressing. procedure explained, stated "I dont think that water tube belongs there". explained to him, reinforce teaching. "stated ok I still dont get it but ok if you said ok"
--- NOTE | 2023-11-23 20:28 | NUR ---
pt SEEN PULLING AT GOWN. IN ROOM TO ASSESS pt, pt REORIENTED AND INSTRUCTED THAT DOCTOR WANTS HIM TO LEAVE GOWN ON AND IV SITE ALONE AND MUST STAY IN BED UNLESS HELPED BY HOSPITAL STAFF. pt VERBALIZES UNDERSTANDING, HX DEMENTIA. pt ASSISTED WITH USE OF URINAL, 100MLS OUTPUT NOTED. pt ALSO HEAVILY INCONTINENT OF URINE, GANGA CARE DONE AND NEW LINENS WITH CHUCKS IN PLACE. GANGA PAD ALSO IN PLACE. SKIN INTACT. BED ALARM RESUMED AND FRESH WARM BLANKETS PROVIDED. ALSO NOTED pt HAD SPILLED WATER ON FLOOR AND ENTIRE BLUE CUP WATER WAS CLEANED FROM FLOOR. VSS AND I&O'S DOCUMENTED. IV FLUIDS INFUSING WNL. CALL LIGHT IN REACH, PRIMARY RN ELICIA UPDATED.
[2023-11-23] MEDS ORDERED: ROPINIROLE HCL 0.25 MG TAB PO SCH (21:00)
--- NOTE | 2023-11-23 22:16 | NUR ---
Pt alert to self only, Has been incontinent of urine 3x since begining of shift, unable to use urinal, 2 complete bed hcnges have been done, clean attends skin care, alert to self. cooperativew ith assessments, lungs clear dim at baes, moist non productive cough present. mucinex and tessalon perles given on requests per cough. tolerating fresh fluids and applejuice sips. Bed alrm on as pt has tried to get out of bed. stiff torse, helped repositioning. 2 SL patent.IVF infusing RAC IV site patent. receptive to instructions, confused. Bed alrm on fall precautions in place. CBG over 200'marjorie, received 3 units ss Insulin.
[2023-11-24] VITALS (7 sets, daily range): BP systolic 127–164; BP diastolic 72–89
--- NOTE | 2023-11-24 00:18 | NUR ---
PT COOPERATIVE, WAS INCONTINENT OF LARGE AMOUNT OF URINE. PURWICK IN PLACE, AT THIS TIME, PROCEDURE EXPLAINED TO PT, SKINC ARE AND CLEAN ATTENDS IN PLACE. PT STATED UNDERSTANDING. WARM BLANKET GIVEN ON REQUEST, TOLERATED TURNING AND REPOSITONING.BED ALARM ON
[2023-11-24 05:44] LABS: BASOPHILS 0.9 % (0-2); EOSINOPHILS 0.5 % (0-6); HEMATOCRIT 42.4 % (35.0-50.0); HEMOGLOBIN 14.3 g/dL (12.0-18.0); MCH 27.6 (27-36); MCHC 33.8 g/dl (30-36); MCV 81.8 fl (81-99); MONOCYTES 17.2 % (0-12); NEUTROPHILS 66.4 % (39-80); PLATELET COUNT 304 K/uL (140-440); RBC 5.18 M/ul (4.3-5.7); RDW 14.5 (10.5-15.0)
[2023-11-24 05:59] LABS: ALBUMIN 2.8 g/dL (3.4-5.0); ALBUMIN/GLOBULIN RATIO 0.62 (1.1-2.4); BILIRUBIN, TOTAL 0.5 ng/dL (0.2-1.0); BUN/CREATININE RATIO 15.53 (6.0-28.6); CALCIUM 9.1 mg/dL (8.5-10.1); CREATININE, SERUM 1.03 mg/dL (0.70-1.30); MAGNESIUM 2.1 mg/dL (1.8-2.4); PHOSPHORUS, INORGANIC 2.5 mg/dL (2.5-4.9); PROTEIN, TOTAL 7.3 g/dL (6.4-8.2)
--- NOTE | 2023-11-24 07:11 | NUR ---
REPORT RECEIVED FROM HEAD CLEANING PORTER RN ELICIA. PATIENT IS LYING IN BED WITH EYES CLOSED AND RESPIRATIONS ARE EVEN AND UNLABORED. CALL LIGHT AND PERSONAL BELONGINGS ARE WITHIN REACH.
--- NOTE | 2023-11-24 07:29 | NUR ---
REPORT RECEIVED FROM WIRE DRAWING MACHINE TENDER STEVIE HARMON. PATIENT IS SITTING AT THE EDGE OF THE BED AT THIS TIME. PATIENT STATED NO NEEDS, CALL LIGHT AND PERSONAL BELONGINGS ARE WITHIN REACH.
--- NOTE | 2023-11-24 08:50 | NUR ---
0800 AND 0900 MEDICATIONS ADMINISTERED PER THE EMAR. FULL ASSESSMENT COMPLETE AND DOCUMENTED IN THE CHART. PATIENT IS ALERT AND ORIENTED TO SELF AND MONTH AT THIS TIME. PATIENT WITH NO COMPLAINTS OF PAIN AT THIS TIME. LUNG SOUNDS ARE CLEAR IN THE UPPER LOBES BILATERALLY AND THE RIGHT LOWER LOBE. PATIENT LUNG SOUNDS ARE DIMINISHED IN THE LEFT LOWER LOBE. PATIENT IS ON ROOM AIR BUT HAS A MOIST COUGH. CARDIAC WITH NORMAL S1 AND S2 ON AUSCULTATION. RADIAL PULSES ARE STRONG BILATERALLY. SENSATION INTACT WITH NO COMPLAINTS OF NUMBNESS AND TINGLING AT THIS TIME. BOWEL TONES ARE ACTIVE IN ALL FOUR QUADRANTS. STRENGTH NORMAL IN THE UPPER AND LOWER EXTREMITIES BILATERALLY. IV SITE IN THE LAC ARE CLEAN, DRY, AND INTACT. IV FLUSHED WITH 10 ML NORMAL SALINE. PATIENT IS SITTING UPRIGHT IN THE CHAIR WITH BILATERAL LOWER EXTREMITIES ELEVATED AND EATING BREAKFAST. PATIENT STATED NO NEEDS AT THIS TIME. CALL LIGHT AND PERSONAL BELONGINGS ARE WITHIN REACH.
--- NOTE | 2023-11-24 08:57 | NUR ---
TAPING MACHINE OPERATOR ASSISTED PT WITH MOVING FROM HIS BED TO HIS CHAIR. PT USED A FWW AND TAPING MACHINE OPERATOR ASSISTED PT MINIMALLY AND WITH CUES. TAPING MACHINE OPERATOR PLACED A NEW DEPENDS AND PAD ON THE PT AND REPLACED PT PUREWICK. CHAIR ALARM IS ON. TAPING MACHINE OPERATOR CHANGED PT BED LINENS AND PLACED BREAKFAST TRAY IN FRONT OF PT. NO FURTHER COMPLAINTS AND CALL LIGHT IS WIHTIN REACH
[2023-11-24] MEDS ORDERED: PANTOPRAZOLE SODIUM 40 MG TABEC PO SCH (09:00)
[2023-11-24] MEDS ORDERED: ASPIRIN 81 MG TABEC PO SCH (09:00)
--- NOTE | 2023-11-24 10:13 | NUR ---
ATTEMPTED TO VISIT DURING SPIRITUAL CARE ROUNDS. PT IN CONFERENCE WITH CASE MANAGEMENT. DID NOT INTERRUPT. PROVIDED PRAYER.
--- NOTE | 2023-11-24 11:00 | NUR ---
Spoke with pts and cousin. moved into [facility] yesterday which is an Assisted Living. would like pt to move directly to [facility] from the hospital if possible. [facility] and and spoke with Eligibility. They state pt is 100% service connected and should have Aid and Attendance to cover her cost of SUKI. RN from [facility] will be here in the AM to complete an evaluation. Let the family know I will call them tomorrow.
--- NOTE | 2023-11-24 11:13 | NUR ---
PATIENT IV FLUIDS HAVE BEEN DISCONTINUED. IV FLUSHED WITH 10 ML NORMAL SALINE AND IS SALINE LOCKED. IV DRESSING IS CLEAN, DRY, AND INTACT. PATIENT IS SITTING UPRIGHT IN THE CHAIR WITH THE LOWER EXTREMITIES ELEVATED. PATIENT STATED NO FURTHER NEEDS AT THIS TIME. CALL LIGHT AND PERSONAL BELONGINGS ARE WITHIN REACH.
--- NOTE | 2023-11-24 12:27 | NUR ---
1200 INSULINE ADMINISTERED PER THE EMAR. PATIENT IS SITTING UPRIGHT IN THE CHAIR WITH THE LOWER EXTREMITIES ELEVATED AT THIS TIME. LUNCH TRAY IS ON THE BEDSIDE TABLE. PATIENT STATED NO FURTHER NEEDS AT THIS TIME. CALL LIGHT AND PERSONAL BELONGINGS ARE WITHIN REACH.
--- NOTE | 2023-11-24 14:15 | NUR ---
PATROL MOTHER ASSISTED PT FROM HIS CHAIR TO THE SHOWER. PT WAS INNAPRORIATE WITH PATROL MOTHER IN THE SHOWER. PATROL MOTHER REDIRECTED AFTER EACH INSTANCE AND TOLD PT THAT IT IS NOT APPROPRIATE FOR HIM TO TOUCH THE PATROL MOTHER'S BEHIND OR MAKE COMMENTS. THE COMMENTS THE PT MADE WERE "ASKING PATROL MOTHER IF SHE WOULD TAKE HER CLOTHES OFF IN THE SHOWER" AND "IF THE PATROL MOTHER WOULD CLIMB INTO BED WITH HIM". PT WAS REDIRECTED. PATROL MOTHER ASSISTED PT WITH GETTING BACK INTO BED. CRM MARKETING MANAGER AWARE
[2023-11-24 14:37] LABS: LEGIONELLA PNEUMOPHILA AG,URN Negative (Negative)
[2023-11-24 14:43] LABS: STREPTOCOCCUS PNEUMONIAE AG,UR Negative (Negative)
--- NOTE | 2023-11-24 15:46 | NUR ---
PATIENT IS LYING IN BED WITH EYES CLOSED AND RESPIRATIONS WERE EVEN AND UNLABORED. PATIENT WOKE UP FROM TOUCH. PATIENT WITH NO COMPLAINTS OF PAIN AT THIS TIME. PATIENT IS ORIENTED TO SELF ONLY AT THIS TIME. IV SITE IS SALINE LOCKED. DRESSING IS CLEAN, DRY, AND INTACT. IV SITE WRAPPED WITH CRISTOBAL WRAP. PATIENT STATED NO FURTHER NEEDS AT THIS TIME. CALL LIGHT AND PERSONAL BELONGINGS ARE WITHIN REACH.
--- NOTE | 2023-11-24 17:48 | NUR ---
PATIENT REPOSITIONED AND IS SITTING UPRIGHT IN BED AND EATING DINNER. 1700 INSULIN ADMINISTERED PER THE EMAR. PATIENT STATED NO FURTHER NEEDS AT THIS TIME. CALL LIGHT AND PERSONAL BELONGINGS ARE WITHIN REACH.
--- NOTE | 2023-11-24 19:20 | NUR ---
REPORT RECIEVED FROM FLAKO HUBBARD. pt RESTING IN THE BED. BOARD UPDATED. pt DENIES ANY NEEDS AT THIS TIME. CALL LIGHT WITHIN REACH.
--- NOTE | 2023-11-24 21:10 | NUR ---
IN ROOM WITH PRIMARY RN ASSISTING WITH EVENIGN VS. pt AWAKE AND RESTING QUIETLY IN BED, ON RA. NO DISTRESS NOTED. BED ALARM ON AND CALL LIGHT IN REACH. PRIMARY RN REMAINS IN ROOM FOR EVENING CARES.
--- NOTE | 2023-11-24 21:30 | NUR ---
ASSESSMENT AND VITAL SIGNS DONE. pt STATED HE WANTED TO USE THE URINAL. BRIEF CHANGED. SCHEDULED MEDICATION ADMINISTERED. IV ASSESSED, WNL. IV ABX INFUSING PER ORDER, SEE MAR. BLOOD GLUCOSE CHECKED WITH A RESULTS OF 204. SS INSULIN ADMINISTERED. WATER REFRESHED. pt DENIES ANY OTHER NEEDS AT THIS TIME. CALL LIGHT WITHIN REACH.
--- NOTE | 2023-11-24 23:30 | NUR ---
pt STATED HE HAD TO PEE. URINAL PLACED BETWEEN LEGS. pt WAS INCONTINENT. PURE WICK WAS PLACED TO TRY AND SOAK UP SOME OF THE URINE. pt DENIES ANY OTHER NEEDS AT THIS TIME. CALL LIGHT WITHIN REACH.
--- NOTE | 2023-11-25 02:46 | NUR ---
pt RESTING IN THE BED WITH EYES CLOSED. RR EVEN AND UNLABORED. CALL LIGHT WITHIN REACH.
--- NOTE | 2023-11-25 04:11 | NUR ---
IN ROOM TO CHECK ON pt. pt LIGHT WAS ON. BRIEF WAS OPEN. pt STATED HE WAS WAITING FOR SOMEONE. pt ALSO STATED HE WASN'T DOING ANYTHING IN THERE. pt REPOSITIONED. CALL LIGHT WITH REACH. NO OTHER NEEDS AT THIS TIME.
[2023-11-25 04:25] VITALS: BP 173/93
--- NOTE | 2023-11-25 04:33 | NUR ---
ASSESSMENT AND VITAL SIGNS DONE. pt RESTING IN THE BED. NO OTHER NEEDS AT THIS TIME. PURE WICK IN PLACE.
[2023-11-25 05:42] LABS: HEMATOCRIT 41.8 % (35.0-50.0); HEMOGLOBIN 14.5 g/dL (12.0-18.0); MCHC 34.6 g/dl (30-36); MCV 80.8 fl (81-99); PLATELET COUNT 325 K/uL (140-440); RBC 5.17 M/ul (4.3-5.7); RDW 14.4 (10.5-15.0)
[2023-11-25 05:54] LABS: LYMPHOCYTES, MANUAL DIFF 19; MONOCYTES, MANUAL DIFF 9; NEUTROPHILS, MANUAL DIFF 72
[2023-11-25 06:05] LABS: ALBUMIN 2.6 g/dL (3.4-5.0); ALBUMIN/GLOBULIN RATIO 0.6 (1.1-2.4); ANION GAP 16.3 (7-21); BILIRUBIN, TOTAL 0.4 ng/dL (0.2-1.0); BUN/CREATININE RATIO 20.56 (6.0-28.6); CALCIUM 9.3 mg/dL (8.5-10.1); CREATININE, SERUM 1.07 mg/dL (0.70-1.30); POTASSIUM 4.3 mmol/L (3.5-5.1); PROTEIN, TOTAL 6.9 g/dL (6.4-8.2)
--- NOTE | 2023-11-25 07:05 | NUR ---
REPORT RECIEVED FROM STEVIE LOWERY. PT RESTING IN BED WITH EYES CLOSED, RR EVEN AND UNLABORED. CALL LIGHT IN REACH. BED ALARM ON.
--- NOTE | 2023-11-25 08:13 | NUR ---
IN WITH SN EDSON TO ADMINISTER MEDICATION, SEE MAR. PT SITTING UP IN BED AND RESPONDS WHEN ADDRESSED. PT DENIES PAIN AT THIS TIME. ASSESSMENT COMPLETE. LUNG SOUNDS CLEAR IN RUL AND ANA. CRACKLES IN RLL AND LLL. BOWEL TONES ACTIVE. ABD TENDER ON LLQ WITH PALPATION. PEDAL PULSES PALPABLE AND EQUAL. BRUISE NOTED TO LEFT FOREARM AND LEFT UPPER ARM. SCAB NOTED TO RIGHT THIRD TOE. SMALL SCATTERED BRUISING NOTED TO RIGHT ARM. MIDDLE KNUCKLE NOTED TO HAVE 4 LITTLE DICOLORED LINES, PT STATES FROM "BURNING HAND ON AC UNIT, ALL THE WAY DOWN TO THE BONE." ASKED PT IF PT KNOWS WHAT THE DATE IS AND PT STATES "NO." ASKED PT WHAT YEAR IT IS AND PT NODS HEAD YES. ASKED PT WHAT YEAR IT IS AGAIN AND PT STATES "THE LEAR AFTER LAST." ASKED PT IF PT KNOWS WHERE WE ARE AND PT STATES "[facility]." WATER PROVIDED. PT DENIES ANY OTHER NEEDS AT THIS TIME. PT SITTING UP HIGH-FOWLERS IN BED EATING BREAKFAST. BED ALARM ON. CALL LIGHT IN REACH.
--- NOTE | 2023-11-25 08:18 | NUR ---
DIRECTOR TRIAL ENTERED ROOM TO GREET PT THIS MORNING. PT WAS LAYING DOWN IN BED. DIRECTOR TRIAL TOOK PT BLOOD SUGAR AND CHARTED IT IN THE EMAR. DIRECTOR TRIAL ASSISTED PT WITH SITTING UP AND GETTING READY TO EAT SOME BREAKFAST. PT STATED NO COMPLAINTS OR CONCERNS. CALL LIGHT IS WITHIN REACH.
[2023-11-25] MEDS ORDERED: LOSARTAN POTASSIUM 25 MG TAB PO SCH (09:00)
--- NOTE | 2023-11-25 09:06 | NUR ---
KENN ROCHA IS HERE TO ASSESS PATIENT FOR POSSIBLE ADMISSION. BAILEE HUBBARD FROM [facility] IS THE NURSE DOING THE ASSESSMENT.
[2023-11-25 09:24] VITALS: BP 125/75
--- NOTE | 2023-11-25 10:02 | NUR ---
PUBLIC SPEAKING COACH SAW IN PT ROOM THAT PT HAD HIS LEGS HANGING OFF THE SIDE OF THE BED, HIS GOWN OFF, AND PT WAS PULLING ON HIS PUREWICK. PUBLIC SPEAKING COACH ENTERED ROOM WITH OTHER PUBLIC SPEAKING COACH TO GET PT REDRESSED AND GET PT SITTING UP IN HIS CHAIR. PT WAS ABLE TO STAND UP OKAY. PT WAS USING A FWW AND 2PA. WHEN PT GOT HIS BACKSIDE IN LINE WITH HIS CHAIR HE SAT DOWN AGGRESIVELY AND SAID "IM DIZZY". PUBLIC SPEAKING COACH HELPED PT GET READJUSTED IN CHAIR. PT LEGS ARE UP, TRAY IS ON HIS LAP, AND CHAIR ALARM IS ON. PUBLIC SPEAKING COACH CHECKED PT BRIEF AND IT WAS DRY. CALL LIGHT IS WITHIN REACH
--- NOTE | 2023-11-25 10:30 | NUR ---
SPOKE TO PATIENT AND LET HIM KNOW THAT THE PATIENT CAN GO TO [facility] AT 2PM TODAY. PATIENT'S CALLED AND UPDATED ALSO. MG BARNES WILL BE AT THE HOSPITAL AT 1330.
[2023-11-25] MEDS ORDERED: CEFDINIR300 MG PO (11:11)
--- NOTE | 2023-11-25 11:11 | NUR ---
IN TO ROUND ON PT. AMBROSIO MEDINA AND AMBROSIO PATEL IN ROOM. PT DENIES ANY NEEDS WHEN OFFERED. CALL LIGHT IN REACH. BED ALARM ON.
[2023-11-25 11:48] VITALS: BP 125/75
--- NOTE | 2023-11-25 11:54 | NUR ---
SPOKE TO PATIENT ABOUT THE DC PLAN AND PATIENT SIGNED THE IMM LETTER FROM MEDICARE. PATIENT IS HAPPY TO GO TO [facility] TODAY.
--- NOTE | 2023-11-25 12:02 | NUR ---
IN WITH SN RUPERTO TO ADMINISTER MEDICATION. PT SITTING UP IN BED AND RESPONDS WHEN ADDRESSED. PT DENIES ANY NEEDS AT THIS TIME. CALL LIGHT IN REACH. BED ALARM ON.
[2023-11-25 12:53] VITALS: BP 107/68
--- NOTE | 2023-11-25 12:55 | NUR ---
IN WITH SN EDSON. AMBROSIO MEDINA IN ROOM OBTAINING I&Os AND VITALS. IV REMOVED WNL. AMBROSIO MEDINA REMAINS IN ROOM. NO OTHER NEEDS FROM THIS RN. CALL LIGHT IN REACH. BED ALARM ON.
--- NOTE | 2023-11-25 13:15 | NUR ---
IN WITH STEVIE VAZQUEZ TO PERFORM 2 RN SKIN ASSESSMENT. REDNESS NOTED TO GANGA-SEGUN, BLANCHABLE. PT DRESSED AND BELONGINGS RETURNED. AMBROSIO MEDINA AND THIS RN ASSIST PT 2PA WITH FWW FROM BED TO WHEELCHAIR. NO OTHER NEEDS FROM THIS RN. AMBROSIO MEDINA TAKING PT DOWN FOR WHEELCHAIR VAN.
--- NOTE | 2023-11-25 13:33 | NUR ---
THIS RN CALLED Jorge Alberto ROCHA AND TALKED TO STEVIE SANTILLAN. QUESTIONS ANSWERED.
== END 2023-11-25 13:25 | DRG 871 ==
LOC: ED 17:20 → MS 17:21
PROVIDERS: Emergency Medicine; ADMIT Family Medicine; ATTEND Family Medicine
PROC: 5A09357 Assistance with Respiratory Ventilation, Less than 24 Consecutive Hours, Continuous Positive Airway Pressure (ICD-10-PCS; principal; 2023-11-23)
PROC: 3E03329 Introduction of Other Anti-infective into Peripheral Vein, Percutaneous Approach (ICD-10-PCS; 2023-11-23)
DX: A41.9 Sepsis, unspecified organism (principal); J18.9 Pneumonia, unspecified organism; J44.0 Chronic obstructive pulmonary disease with (acute) lower respiratory infection; I69.354 Hemiplegia and hemiparesis following cerebral infarction affecting left non-dominant side; E11.9 Type 2 diabetes mellitus without complications; Z66 Do not resuscitate; E83.39 Other disorders of phosphorus metabolism; E83.42 Hypomagnesemia; E78.00 Pure hypercholesterolemia, unspecified; I10 Essential (primary) hypertension; K21.9 Gastro-esophageal reflux disease without esophagitis; F03.A0 Unspecified dementia, mild, without behavioral disturbance, psychotic disturbance, mood disturbance, and anxiety; G25.81 Restless legs syndrome; Z95.1 Presence of aortocoronary bypass graft; Z90.49 Acquired absence of other specified parts of digestive tract; Z90.89 Acquired absence of other organs; Z98.890 Other specified postprocedural states; Z79.899 Other long term (current) drug therapy; Z79.82 Long term (current) use of aspirin; Z79.4 Long term (current) use of insulin; Z79.84 Long term (current) use of oral hypoglycemic drugs; Z79.51 Long term (current) use of inhaled steroids
CPT/HCPCS: 36415; 51701; 71045; 80053; 81001; 83605; 83735; 84100; 85025; 87040; 87449; 87502; 87899; 93005; 93010; 94760; 96365; 96366; 96367; 96372; 96374; 97112; 97162; 97166; 97530; 97535; 99285-25; A9270; G0378; J0456; J0696; J1650; J1815; J3475; J7030; J7060; U0002

== ENCOUNTER 2024-01-13 08:02 | Emergency (ER) | payer MEDICARE, OTHER ==
[~2024-01-13] VITALS: Ht 172.7 cm; Wt 75.1 kg
[~2024-01-13 08:02] MED LIST changes: +CEFDINIR300 MG PO; +COZAAR25 MG PO; +CRANBERRY450 M2 PO; +DULCOLAX10 MG PR; +FLEET ENEMA133 ML PR; +GLUCAGON EMERGEN1 MG INJ; +NIFEDIPINE ER30 MG PO; +PROAIR DIGIHAL90 MCG INH; +TIOTROPIUM BRO18 MCG INH; +TYLENOL EXTRA500 MG PO
[2024-01-13] MEDS ORDERED: CEFTRIAXONE/SODIUM CHLORIDE 2 GM/100 ML PIGGYBACK IV ONE (08:15)
[2024-01-13] MEDS ORDERED: SODIUM CHLORIDE 0.9% 1,000 ML IV ONE (08:15)
[2024-01-13 08:32] LABS: HEMATOCRIT 41.5 % (35.0-50.0); HEMOGLOBIN 13.7 g/dL (12.0-18.0); MCH 26.6 (27-36)
[2024-01-13 08:35] LABS: MCHC 33.1 g/dl (30-36); MCV 80.5 fl (81-99); PLATELET COUNT 311 K/uL (140-440); RBC 5.16 M/ul (4.3-5.7); RDW 14.8 (10.5-15.0)
[2024-01-13] MEDS ORDERED: LIDOCAINE 2% VISCOUS 6 ML SYR TOP ONE (08:45)
[2024-01-13 08:46] LABS: ALBUMIN 3.4 g/dL (3.4-5.0); ALBUMIN/GLOBULIN RATIO 0.85 (1.1-2.4); BILIRUBIN, TOTAL 0.5 ng/dL (0.2-1.0); BUN/CREATININE RATIO 22.6 (6.0-28.6); CALCIUM 9.6 mg/dL (8.5-10.1); CREATININE, SERUM 1.15 mg/dL (0.70-1.30); PROTEIN, TOTAL 7.4 g/dL (6.4-8.2)
[2024-01-13 08:49] LABS: BILIRUBIN, URINE NEGATIVE (negative); BLOOD/HGB, URINE NEGATIVE (Negative); KETONE, URINE NEGATIVE (Negative); LEUK ESTERASE, URINE NEGATIVE (negative); NITRITE, URINE NEGATIVE (negative)
[2024-01-13 08:49] LABS: LACTIC ACID, BLOOD 1.2 mmol/L (0.4-2.0)
[2024-01-13 08:52] LABS: LYMPHOCYTES, MANUAL DIFF 18; MONOCYTES, MANUAL DIFF 29; NEUTROPHILS, MANUAL DIFF 53
[2024-01-13 09:06] LABS: INFLUENZA B NAA NEGATIVE (NEGATIVE); RESPIRATORY SYNCYTIAL VIR NAA NEGATIVE (NEGATIVE)
[2024-01-13] MEDS ORDERED: PAXLOVID 150-11 EAC1 PO (09:27)
[2024-01-13 09:47] VITALS: BP 166/87
== END 2024-01-13 09:47 | disposition home or self-care (01) ==
LOC: ED 08:02
PROVIDERS: Emergency Medicine
DX: U07.1 COVID-19 (principal); E11.9 Type 2 diabetes mellitus without complications; I10 Essential (primary) hypertension; E78.00 Pure hypercholesterolemia, unspecified; K21.9 Gastro-esophageal reflux disease without esophagitis; Z86.73 Personal history of transient ischemic attack (TIA), and cerebral infarction without residual deficits; Z79.84 Long term (current) use of oral hypoglycemic drugs; Z79.4 Long term (current) use of insulin; Z79.82 Long term (current) use of aspirin; Z79.899 Other long term (current) drug therapy
CPT/HCPCS: 36415; 51701; 71045; 80053; 81003; 83605; 85025; 87502; 99284-25; J0696; J7030; U0002

== ENCOUNTER 2024-02-03 20:16 | Emergency (ER) | payer MEDICARE, OTHER ==
[~2024-02-03] VITALS: Ht 172.7 cm; Wt 80.5 kg
[~2024-02-03 20:16] MED LIST changes: +PAXLOVID 150-11 EAC1 PO
--- OUTSIDE RECORDS SUMMARY | 2024-02-03 20:23 | XMS ---
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 E.DRonna VISIT COUNT (12 MO.) 5 [facility]ESS [facility] TOTAL 5 NOTE: Visits indicate total known visits. ED/UCC VISIT TRACKING (12 MO.) 02/03/2024 20:16 [facility] TYPE: Emergency COMPLAINT: - WEAKNESS 01/13/2024 08:02 [facility] TYPE: Emergency COMPLAINT: - LETHARGIC DIAGNOSES: - COVID-19 - Essential (primary) hypertension - Gastro-esophageal reflux disease without esophagitis - assisted (current) use of aspirin - assisted (current) use of insulin - intermediate teacher (current) use of oral hypoglycemic drugs - Other director long term care (current) drug therapy - Personal history of transient ischemic attack (TIA), and cerebral infarction without residual deficits - Pure hypercholesterolemia, unspecified - Tachycardia, unspecified - Type 2 diabetes mellitus without complications 11/22/2023 17:20 [facility] TYPE: Emergency COMPLAINT: - POSSIBLE SEPSIS 07/17/2023 13:08 [facility] TYPE: Emergency COMPLAINT: - LEFT HAND INJURY DIAGNOSES: - Contusion of left hand, initial encounter - Essential (primary) hypertension - Gastro-esophageal reflux disease without esophagitis - assisted (current) use of aspirin - assisted (current) use of inhaled steroids - assisted (current) use of insulin - intermediate teacher (current) use of oral hypoglycemic drugs - Other nursing home (current) drug therapy - Pain in left hand - Pure hypercholesterolemia, unspecified - Type 2 diabetes mellitus without complications - Unspecified dementia, unspecified severity, without behavioral disturbance, psychotic disturbance, mood disturbance, and anxiety - Unspecified fall, initial encounter 07/15/2023 12:05 [facility] TYPE: Emergency COMPLAINT: - STROKE DIAGNOSES: - Chronic obstructive pulmonary disease, unspecified - Contusion of left eyelid and periocular area, initial encounter - Essential (primary) hypertension - Fall on same level from slipping, tripping and stumbling without subsequent striking against object, initial encounter - Gastro-esophageal reflux disease without esophagitis - assisted (current) use of aspirin - intermediate teacher (current) use of insulin - assisted (current) use of oral hypoglycemic drugs - Other director long term care (current) drug therapy - Personal history of transient ischemic attack (TIA), and cerebral infarction without residual deficits - Pure hypercholesterolemia, unspecified - Restless legs syndrome - Type 2 diabetes mellitus without complications - Unspecified dementia, unspecified severity, without behavioral disturbance, psychotic disturbance, mood disturbance, and anxiety - Unspecified injury of head, initial encounter INPATIENT VISIT TRACKING (12 MO.) 11/23/2023 13:19 [facility] TYPE: Medical Surgical COMPLAINT: - SEPSIS, POSSIBLE PNEUMONIA DIAGNOSES: - Acquired absence of other organs - Acquired absence of other organs - Acquired absence of other specified parts of digestive tract - Acquired absence of other specified parts of digestive tract - Chronic obstructive pulmonary disease with (acute) lower respiratory infection - Chronic obstructive pulmonary disease with (acute) lower respiratory infection - Do not resuscitate - Do not resuscitate - Essential (primary) hypertension - Essential (primary) hypertension - Gastro-esophageal reflux disease without esophagitis - Gastro-esophageal reflux disease without esophagitis - Hemiplegia and hemiparesis following cerebral infarction affecting left non-dominant side - Hemiplegia and hemiparesis following cerebral infarction affecting left non-dominant side - Hypomagnesemia - Hypomagnesemia - intermediate teacher (current) use of aspirin - intermediate teacher (current) use of aspirin - assisted (current) use of inhaled steroids - assisted (current) use of inhaled steroids - intermediate teacher (current) use of insulin - assisted (current) use of insulin - intermediate teacher (current) use of oral hypoglycemic drugs - intermediate teacher (current) use of oral hypoglycemic drugs - Other disorders of phosphorus metabolism - Other disorders of phosphorus metabolism - Other nursing home (current) drug therapy - Other director long term care (current) drug therapy - Other specified postprocedural states - Other specified postprocedural states - Personal history of transient ischemic attack (TIA), and cerebral infarction without residual deficits - Pneumonia, unspecified organism - Pneumonia, unspecified organism - Presence of aortocoronary bypass graft - Presence of aortocoronary bypass graft - Pure hypercholesterolemia, unspecified - Pure hypercholesterolemia, unspecified - Restless legs syndrome - Restless legs syndrome - Sepsis, unspecified organism - Type 2 diabetes mellitus without complications - Type 2 diabetes mellitus without complications - Unspecified dementia, mild, without behavioral disturbance, psychotic disturbance, mood disturbance, and anxiety - Unspecified dementia, mild, without behavioral disturbance, psychotic disturbance, mood disturbance, and anxiety [email or web address]
[2024-02-03 20:46] LABS: MCH 26.8 (27-36); MCHC 33.4 g/dl (30-36); MCV 80.2 fl (81-99); PLATELET COUNT 345 K/uL (140-440); RBC 4.86 M/ul (4.3-5.7); RDW 14.8 (10.5-15.0)
[2024-02-03 21:00] LABS: BILIRUBIN, URINE NEGATIVE (negative); BLOOD/HGB, URINE NEGATIVE (Negative); KETONE, URINE NEGATIVE (Negative); LEUK ESTERASE, URINE NEGATIVE (negative); NITRITE, URINE NEGATIVE (negative)
[2024-02-03 21:05] LABS: BANDS, MANUAL DIFF 4; LYMPHOCYTES, MANUAL DIFF 36; MONOCYTES, MANUAL DIFF 5; NEUTROPHILS, MANUAL DIFF 55
[2024-02-03 21:06] LABS: ALBUMIN 3.4 g/dL (3.4-5.0); ALBUMIN/GLOBULIN RATIO 0.87 (1.1-2.4); ANION GAP 11.7 (7-21); BILIRUBIN, TOTAL 0.4 ng/dL (0.2-1.0); BUN/CREATININE RATIO 24.82 (6.0-28.6); CALCIUM 10.4 mg/dL (8.5-10.1); CREATININE, SERUM 1.41 mg/dL (0.70-1.30); MAGNESIUM 1.8 mg/dL (1.8-2.4); POTASSIUM 4.7 mmol/L (3.5-5.1); PROTEIN, TOTAL 7.3 g/dL (6.4-8.2)
[2024-02-03] MEDS ORDERED: SODIUM CHLORIDE 0.9% 500 ML IV PRN (21:15)
[2024-02-03 21:50] VITALS: BP 138/77
== END 2024-02-03 21:50 | disposition home or self-care (01) ==
LOC: ED 20:16
PROVIDERS: Family Medicine
DX: E86.0 Dehydration (principal); E11.9 Type 2 diabetes mellitus without complications; E78.00 Pure hypercholesterolemia, unspecified; I10 Essential (primary) hypertension; K21.9 Gastro-esophageal reflux disease without esophagitis; Z86.73 Personal history of transient ischemic attack (TIA), and cerebral infarction without residual deficits; Z79.82 Long term (current) use of aspirin; Z79.84 Long term (current) use of oral hypoglycemic drugs; Z79.4 Long term (current) use of insulin; Z79.899 Other long term (current) drug therapy
CPT/HCPCS: 36415; 51701; 80053; 81003; 83735; 85025; 99285-25; J7040

== ENCOUNTER 2024-04-13 09:16 | Inpatient (IN) | payer MEDICARE, OTHER ==
[2024-04-13] VITALS (7 sets, daily range): BP systolic 148–203; BP diastolic 82–108
[~2024-04-13] VITALS: Ht 172.7 cm; Wt 77.8 kg
--- NOTE | ~2024-04-13 | EKG ---
[facility] [address] [place], [place] [address] Draft EK completed, results pending confirmation PATIENT NAME: MICHELLE FELIX Electrocardiogram DATE OF : 40 PHYSICIAN: PRELIMINARY REPORT #: [id number] REPORT IS CONFIDENTIAL AND NOT TO BE RELEASED WITHOUT AUTHORIZATION
[~2024-04-13 09:16] MED LIST changes: -METFORMIN HCL1000 MG PO; -TIOTROPIUM BRO18 MCG INH
[2024-04-13] MEDS ORDERED: SODIUM CHLORIDE 0.9% 1,000 ML IV PRN ×2 (09:30→10:45)
[2024-04-13 09:33] LABS: HEMATOCRIT 44.7 % (35.0-50.0); MCH 26.6 (27-36); MCHC 33.6 g/dl (30-36); PLATELET COUNT 392 K/uL (140-440); RBC 5.66 M/ul (4.3-5.7); RDW 15.3 (10.5-15.0)
[2024-04-13 09:45] LABS: PARTIAL THROMBOPLASTIN TIME 32.5 Sec (22.9-41.3)
[2024-04-13 09:46] LABS: INR 1.02 (0.80-1.30); PROTIME 12.7 Sec (11.2-14.2)
[2024-04-13 09:49] LABS: BANDS, MANUAL DIFF 2; LYMPHOCYTES, MANUAL DIFF 13; MONOCYTES, MANUAL DIFF 8; NEUTROPHILS, MANUAL DIFF 77
[2024-04-13 09:51] LABS: ALCOHOL, MEDICAL <3 ng/dL (<3); MAGNESIUM 1.6 mg/dL (1.8-2.4)
[2024-04-13 09:53] LABS: ALBUMIN 3.7 g/dL (3.4-5.0); ALBUMIN/GLOBULIN RATIO 0.71 (1.1-2.4); ANION GAP 15.4 (7-21); BILIRUBIN, TOTAL 0.6 ng/dL (0.2-1.0); BUN/CREATININE RATIO 15.54 (6.0-28.6); CALCIUM 10.6 mg/dL (8.5-10.1); CREATININE, SERUM 1.48 mg/dL (0.70-1.30); POTASSIUM 4.4 mmol/L (3.5-5.1); PROTEIN, TOTAL 8.9 g/dL (6.4-8.2)
[2024-04-13 10:29] LABS: INFLUENZA B NAA NEGATIVE (NEGATIVE); RESPIRATORY SYNCYTIAL VIR NAA NEGATIVE (NEGATIVE)
[2024-04-13] MEDS ORDERED: CEFEPIME HCL/D5W 2 GM/100 ML PIGGYBACK IV ONE ×2 (10:45)
[2024-04-13 11:06] LABS: BILIRUBIN, URINE NEGATIVE (negative); BLOOD/HGB, URINE TRACE-I (Negative); KETONE, URINE NEGATIVE (Negative); LEUK ESTERASE, URINE NEGATIVE (negative); NITRITE, URINE NEGATIVE (negative)
[2024-04-13 11:15] LABS: BACTERIA, URINE NONE SEEN /hpf (negative); CASTS, URINE NONE SEEN \\lpf; COLLECTION TYPE, URINE VOID; CRYSTALS, URINE NONE SEEN (0-1+); EPITHELIAL CELLS, URINE SQUAMOUS 1+ /lpf (0-1+); RED BLOOD CELLS, URINE 0-1 /hpf (0-5); REFLEX CULTURE, URINE No (No); WHITE BLOOD CELLS, URINE 0-1 /HPF (0-5)
[2024-04-13 11:21] LABS: AMPHETAMINES, URINE NEGATIVE (NEGATIVE); BARBITURATES, URINE NEGATIVE (NEGATIVE); BENZODIAZEPINE, URINE NEGATIVE (NEGATIVE); BUPRENORPHINE, URINE NEGATIVE (NEGATIVE); CANNABINOID, URINE NEGATIVE (NEGATIVE); COCAINE, URINE NEGATIVE (NEGATIVE); ECSTASY, URINE NEGATIVE (NEGATIVE); FENTANYL, URINE NEGATIVE (NEGATIVE); METHADONE, URINE NEGATIVE (NEGATIVE); OPIATES, URINE POSITIVE (NEGATIVE); OXYCODONE, URINE NEGATIVE (NEGATIVE); PHENCYCLIDINE, URINE NEGATIVE (NEGATIVE)
[2024-04-13] MEDS ORDERED: LORazepam 2 MG/ML VIAL IV ONE (13:45)
[2024-04-13 14:13] LABS: ACETAMINOPHEN 0 ug/mL (10-30); TSH, 3RD GENERATION 1.133 uIU/mL (0.358-3.740)
[2024-04-13] MEDS ORDERED: ACETAMINOPHEN 500 MG TAB PO PRN (14:15)
[2024-04-13] MEDS ORDERED: IBLOOD GLUCOSE TEST STRIP 1 EA TEST XX PRN (14:15)
[2024-04-13] MEDS ORDERED: ondansetron HCL 4 MG/2 ML VIAL IV PRN (14:15)
[2024-04-13] MEDS ORDERED: GLUCAGON,HUMAN RECOMBINANT 1 MG/ML VIAL SUB-Q PRN (14:15)
[2024-04-13] MEDS ORDERED: DEXTROSE 50% 50 ML SYR IV PRN ×2 (14:15)
[2024-04-13] MEDS ORDERED: bisacodyL 10 MG SUPP PR PRN (14:15)
[2024-04-13] MEDS ORDERED: DEXTROSE 5% 1,000 ML IV PRN (14:15)
[2024-04-13 14:41] LABS: CLARITY, CEREBROSPINAL FLUID CLEAR; COLOR, CEREBROSPINAL FLUID COLORLESS; RBC, CEREBROSPINAL FLUID 23; WBC, CEREBROSPINAL FLUID 1
[2024-04-13] MEDS ORDERED: LACTATED RINGER'S 1,000 ML IV SCH (15:00)
[2024-04-13 15:04] LABS: GLUCOSE, CSF 141 mg/dL (40-70); PROTEIN, CSF 86 mg/dL (15-45)
[2024-04-13] MEDS ORDERED: hydrALAZINE HCL 20 MG/ML VIAL IV ONE (15:15)
--- NOTE | 2024-04-13 15:32 | NUR ---
PT TO RM 111 FROM ER. BED ALARM ON, CALL LIGHT WITHIN REACH.
--- NOTE | 2024-04-13 15:42 | NUR ---
DR AMAYA CALLED REGARDING PT'S BP 203/101 (118), P 137, R24, T 100. ORDERS RECEIVED.
[2024-04-13] MEDS ORDERED: LABETALOL HCL 20 MG/4 ML VIAL IV PRN (15:45)
--- NOTE | 2024-04-13 15:56 | NUR ---
DR AMAYA IN TO SEE PT.
--- NOTE | 2024-04-13 16:08 | NUR ---
Pt report received from STEVIE Martin.
--- NOTE | 2024-04-13 16:40 | NUR ---
PT HAD A BM NURSE CAME IN TO HELP TO CHANGE PT. WELL PUT ON A MALE PUREWICK ON PT @1600 AND PUT TELE 4 ON PT. NURSE IS CURRENTLY IN ROOM WITH PT AND DOESNT NEED ME AT THE MOMENT. CALL LIGHT IS WITHIN REACH.
[2024-04-13] MEDS ORDERED: INSULIN LISPRO 100 UNIT/ML ML SUB-Q SCH (17:00)
[2024-04-13] MEDS ORDERED: IBLOOD GLUCOSE TEST STRIP 1 EA TEST VI SCH (17:00)
[2024-04-13] MEDS ORDERED: ACETAMINOPHEN 325 MG SUPP PR PRN (17:15)
[2024-04-13] MEDS ORDERED: EUCERIN ADVANC454 GM TOP (17:41)
[2024-04-13] MEDS ORDERED: LUBRICANT EYE3.5 G3 OU (17:45)
[2024-04-13] MEDS ORDERED: MIRALAX17 GM PO (17:46)
--- NOTE | 2024-04-13 18:43 | NUR ---
INITIAL SKIN ASSESSMENT TAKEN FROM STEVIE JOLLY'S ASSESSMENT DURING GANGA CARE SHE AND DEDE PERFORMED SHORTLY AFTER PT'S ARRIVAL TO THE FLOOR. I PERFORMED A MORE THOROUGH SKIN ASSESSMENT WHILE PERFORMING ADDITIONAL GANGA CARE AFTER THE PT'S 2ND AND 3RD BOWEL MOVEMENTS AND NOTED AN AREA, AT THE SUPERIOR GLUTEAL CLEFT, WHERE ULCERATIONS HAVE STARTED SURROUNDED BY REDNESS. BARRIER CREAM APPLIED TO THE ULCERATED/RED AREAS AFTER GANGA CARE PERFORMED. PT IS VERY STIFF WHEN HE IS LOG-ROLLED, AND ATTEMPTS TO GRASP ONTO THE STAFF WHEREVER HE CAN REACH. HE HAD A TENDENCY TO CLENCH HIS BUTTOCKS WHEN BEING CLEANED. HIS SPEECH IS SOMEWHAT GARBLED/SLURRED. HE RESPONDS TO VERBAL, ATTEMPTS TO FOLLOW SIMPLE DIRECTIONS, ABLE TO DRINK FROM A STRAW BUT IMMEDIATELY BEGINS TO COUGH. AT BEDSIDE STATES THAT, IN THE ED, HE WAS COMPLAINING OF FEELING LIKE THERE WAS SOMETHING STUCK IN HIS THROAT. A FEW TIMES, THE PT HAD A PRODUCTIVE SOUNDING COUGH AND SEEMED THOUGH IT CAME UP ABOVE HIS TRACHEA, BUT THEN HE SEEMED TO HAVE TROUBLE GETTING IT PAST THERE AND WOULD THEN TRY TO SWALLOW IT. SIDE RAILS UP X4, FALL RISK BAND ON WRIST, IVF RUNNING PER EMAR. CALL LIGHT IN REACH. WILL ATTEMPT TO LOCATE FALL MATS.
[2024-04-13] MEDS ORDERED: LABETALOL HCL 20 MG/4 ML VIAL IV SCH (18:45)
[2024-04-13] MEDS ORDERED: ACYCLOVIR SOD IV SCH (19:30)
[2024-04-13] MEDS ORDERED: ACYCLOVIR SOD 750 MG in DEXTROSE 5% 250 ML IV SCH (19:30)
[2024-04-13] MEDS ORDERED: DEXTROSE 5% IV SCH (19:30)
--- NOTE | 2024-04-13 19:32 | NUR ---
Received report from STEVIE Zaidi. Pt resting quietly in bed. White board updated. Call light within reach.
--- NOTE | 2024-04-13 20:38 | NUR ---
DISPATCHER MOTOR VEHICLE OBTAINED VITALS AND OUTPUT. NO NEW INTAKE AT THIS TYIME. PT BLOOD SUAGR CHECKED. PT STATES NO NEEDS AT THIS TIME. PUREWICK CANNISTER EMPTIED. CALL LIGHT WTIHIN REACH AND BED ALARM ON.
[2024-04-13] MEDS ORDERED: MELATONIN 3 MG TAB PO PRN (21:00)
[2024-04-13] MEDS ORDERED: HEParin SOD (PORCINE) 5,000 UNIT/ML SDV SUB-Q SCH (21:00)
--- NOTE | 2024-04-13 21:00 | NUR ---
Pt restless, fidgeting. VSS, HR 120's, MD in room, aware. Tele in place. Oriented x self only. Only follows simple commands. Very minimal verbal responses. Denies pain but some moaning w/ position change. LSC dim. BTA, inc BM-josie care provided, barrier cream applied to bottom. Male ext cath in place, clear yellow urine noted. RFA IV infusing IVF per EMAR. LW IV SL'd. Pt required 2 max assist w/ bed mobility. Call light within use.
--- NOTE | 2024-04-13 23:20 | NUR ---
Pt appears asleep but fidgeting in bed. Contact precautions inititated.
[2024-04-14] VITALS (14 sets, daily range): BP systolic 135–173; BP diastolic 84–99
--- NOTE | 2024-04-14 01:24 | NUR ---
Pt sleeping, breathing even and unlabored. Still fidgeting. IVF infusing.
--- NOTE | 2024-04-14 01:35 | NUR ---
FIRE PROTECTION FABRICATOR OBTAINED VITALS AND OUTPUT. NO NEW INTAKE AT THIS TIME. PT STATES NO NEEDS. PUREWICK CANNISTER EMPTIED. CALL LIGHT WITHIN REACH AND BED ALARM ON.
--- NOTE | 2024-04-14 03:42 | NUR ---
PATIENT HEARD HOLLERING OUT FROM ROOM. PATIENT INCONTINENT OF STOOL. NEW SLIDE SHEET, SANTHOSH, BRIEF, AND PUREWICK PLACED AFTER GANGA CARE PROVIDED. BED ALARM ON FOR SAFETY. WARM BLANKET PROVIDED. NEW BAG IV FLUID INFUSING PER ORDER. NO FURTHER NEEDS. CALL LIGHT IN REACH.
[2024-04-14 05:39] LABS: HEMATOCRIT 43.4 % (35.0-50.0); HEMOGLOBIN 15.1 g/dL (12.0-18.0); MCH 27.4 (27-36); MCHC 34.8 g/dl (30-36); MCV 78.8 fl (81-99); PLATELET COUNT 379 K/uL (140-440); RBC 5.51 M/ul (4.3-5.7); RDW 15.2 (10.5-15.0)
[2024-04-14 05:49] LABS: ANION GAP 13.7 (7-21); BUN/CREATININE RATIO 12.6 (6.0-28.6); CALCIUM 10.3 mg/dL (8.5-10.1); CREATININE, SERUM 1.19 mg/dL (0.70-1.30); MAGNESIUM 1.8 mg/dL (1.8-2.4); POTASSIUM 3.7 mmol/L (3.5-5.1)
[2024-04-14 05:51] LABS: LYMPHOCYTES, MANUAL DIFF 29; MONOCYTES, MANUAL DIFF 6; NEUTROPHILS, MANUAL DIFF 65
--- NOTE | 2024-04-14 06:11 | NUR ---
MILL CONTROLLER OBTAINED VITALS AND OUTPUT. NO NEW INTAKE AT THIS TIME. PT STATES NO NEEDS. PUREWICK CANNISTER EMPTIED. CALL LIGHT WITHIN REACH AND BED ALARM ON.
--- NOTE | 2024-04-14 06:20 | NUR ---
Pt awake, restless. Speech improved this AM, less garbled. Mouth care provided. Pt able to take 3 small sips water ok, 4th sip w/ some coughing. Pt repositioned for comfort. Fall mats on floor for safety. Call light within reach.
--- NOTE | 2024-04-14 07:00 | NUR ---
REPORT RECIEVED FROM SHARI RN AND ESME RN. PT IN BED HIGH FOWLERS WITH EYES CLOSED, RR EVEN AND UNLABORED. FALL MATS ON FLOOR. BED ALARM ON. NO NEEDS IDENTIFIED AT THIS TIME. CALL LIGHT IN PTs RIGHT HAND.
--- NOTE | 2024-04-14 07:58 | NUR ---
IN WITH STEVIE PANTOJA TO BOOST PT UP IN BED. PT BOOTED AND SITTING UP IN BED HIGH FOWLERS. MEDICATIONS ADMINISTERED, SEE MAR. PT DENIES PAIN AT THIS TIME. PT A&O TO SELF. WHEN ASKING PT WHAT THE DATE IS PT STATES "I DON'T KNOW" AND CLOSES EYES AND BEGINS TO REST WITH RR EVEN AND UNLABORED. ATTEMPTED TO ASK PT IF PT KNOWS WHAT MONTH IT IS. PT AWAKENS AND STATES "I DO NOT KNOW." AKSED PT IF PT KNOWS WHAT YEAR IT IS AND PT STARTS TO SAY "19 . . ." PT NOTED TO HAVE MUTTERED SPEECH AND CLOSES EYES TO REST AGAIN. RR EVEN AND UNLABORED. COBAN NOTED TO PTs IV SITE. COBAN REMOVED TO ASSESS IV SITE. EDEMA NOTED TO LEFT FOREARM WHERE IV SITE IS. IV FLUIDS STOPPED. PT DENIES PAIN TO SITE. THIS RN ATTEMPTED 2 IV STARTS, BOTH UNSUCCESSFUL. PTs BED IN LOWEST POSITION. SIDE RAILS UP FOR SAFTEY. BED ALARM ON. FALL MATS IN PLACE. PT CONTINUES TO REST IN BED. CALL LIGHT IN PTs RIGHT HAND. NO OTHER NEEDS IDENTIFIED AT THIS TIME.
--- NOTE | 2024-04-14 08:39 | NUR ---
PATIENT IN BED AT THIS TIME. CALL LIGHT WITHIN REACH, NO FURTHER NEEDS AT THIS TIME.
[2024-04-14] MEDS ORDERED: FLU VACC TS2024(65UP)/MF59C/PF 1 EACH SYR IM SCH (09:00)
--- NOTE | 2024-04-14 09:49 | NUR ---
SPOKE TO THE AND THE PATIENT ABOUT THE DISCHARGE PLAN. THE PATIENT'S EYES ARE CLOSED AND THE PATIENT LETS HIS DO THE TALKING. THE FEELS THE PATIENT IS A LITTLE BETTER TODAY. THE HOPES TO TAKE THE PATIENT BACK TO [facility] WHEN THE PATIENT IS BACK TO HIS NORMAL WHICH IS THE DOES MOST OF THE PATIENT'S CARE. THE PATIENT HAD A STROKE AND USES A WALKER AND A SHOWER CHAIR. THERE ARE NO FAMILY MEMBERS THAT CAN HELP IF NEEDED. PATIENT HAS BEEN DROWSY SINCE THE PATIENT HIT HIS HEAD AND ANSWERS VERY FEW QUESTIONS. THE PATIENT'S WOULD LIKE TO TAKE THE PATIENT BACK TO [facility].THE DOES NOT WANT HER TO GO TO A JAIL. THE STATES SHE WILL TAKE CARE OF THE PATIENT.THE CASE MANAERG WILL MONITOR THE PATIENT FOR FUTURE NEEDS AND BE AVAILABLE TO HELP THE PATIENT'S .
--- NOTE | 2024-04-14 10:38 | NUR ---
IN TO ASSIST PHYSICAL THERAPY. PT SITTING UP ON EDGE OF BED. PT NOTED TO BE INCONTINENT OF STOOL. LINENS ON BED CHANGED. AMBROSIO AGUAYO IN TO ASSIST THIS RN WITH GANGA-CARE. NEW ATTENDS PLACED AND NEW MALE-PUREWICK PLACED. BARRIER CREAM APPLIED TO GLUTEAL CLEFT SKIN NOTED TO BE RED AND SOME BREAKDOWN, BLANCHABLE. ASSESSMENT COMPLETE. LUNG SOUNDS CLEAR IN RUL AND ANA. CRACKLES RLL AND LLL. HEART TONES TACHYCARDIC. BOWEL TONES ACTIVE. ABD TENDERNESS WITH RLQ WITH PALPATION TO ABD. IV IN LEFT FOREARM REMOVED WNL. PT SITTING UP IN BED HIGH FOWLERS. EYES CLOSED, RR EVEN AND UNLABORED. SIDE RAILS UP X4 FOR SAFTEY. FALL MATS IN PLACE. BED ALARM ON. CALL LIGHT IN REACH. NO OTHER NEEDS IDENTIFIED AT THIS TIME.
--- NOTE | 2024-04-14 11:33 | NUR ---
UR CLINICAL REVIEW: 2 MN FOR VERSALUS-MEETS INPATIENT CRITERIA MEDICARE INPT 04/13/24 @ 1422 ORDER MATCHES REG. NO AUTH REQUIRED PER MEDICARE GUIDELINES. DISCHARGE TO HOME WHEN STABLE
--- NOTE | 2024-04-14 11:47 | NUR ---
PT NOT AVAILABLE FOR VISIT. PROVIDED PRAYER.
--- NOTE | 2024-04-14 11:57 | EKG ---
[facility] [address] [place] [address] Sin[address] Marked ST abnormality, possible inferior subendocardial injury Abnormal ECG Confirmed by Lucie Amaya MD ([id number]) on 04/14/2024 11:57:42 AM Electronically Signed By: LUCIE AMAYA DO 04/14/24 1157 PATIENT NAME: MICHELLE FELIX Electrocardiogram DATE OF : 40 PHYSICIAN: LUCIE AMAYA DO REPORT #: [id number] REPORT IS CONFIDENTIAL AND NOT TO BE RELEASED WITHOUT AUTHORIZATION
[2024-04-14] MEDS ORDERED: PHARMACY RENAL DOSE ADJUSTMENT 1 DOSE MISC PO SCH (12:00)
--- NOTE | 2024-04-14 12:00 | EKG ---
[facility] [address] [place] [address] Signed Sinus tachycardia with occasional premature ventricular complexes T wave abnormality, consider lateral ischemia Abnormal ECG When compared with ECG of 13-APR-2024 16:45, (Unconfirmed) premature ventricular complexes are now present premature atrial complexes are no longer present Confirmed by Lucie Amaya MD ([id number]) on 04/14/2024 12:00:23 PM Electronically Signed By: LUCIE AMAYA DO 04/14/24 1200 PATIENT NAME: MICHELLE FELIX Electrocardiogram DATE OF : 40 PHYSICIAN: LUCIE AMAYA DO REPORT #: [id number] REPORT IS CONFIDENTIAL AND NOT TO BE RELEASED WITHOUT AUTHORIZATION
--- NOTE | 2024-04-14 12:17 | NUR ---
MED REC COMPLETE
--- NOTE | 2024-04-14 13:05 | NUR ---
IN TO ADMINISTER MEDICATION, SEE MAR. SCARLETT RN IN ROOM. PER STEVIE PANTOJA "PT PULLED IV OUT." PT SITTING UP IN BED AND PTs ASSISTING PT WITH LUNCH. STEVIE PANTOJA REMAINS IN ROOM. WILL ATTEMPT A NEW IV START WHEN PT IS DONE WITH LUNCH. NO OTHER NEEDS FROM THIS RN. CALL LIGHT IN REACH. BED ALARM ON. SIDE RAILS UP X4 FOR SAFTEY. FALL MATS IN PLACE.
--- NOTE | 2024-04-14 15:10 | NUR ---
IN WITH CHAO STUDENT RESIDENT TECH TO ATTEMPT IV START. LEANDRA GUIDRY HAS 1 SUCCESSFUL ATTEMPT IN PTs RIGHT AC. BLOOD RETURN NOTED. IV FLUSHES WNL. IV FLUIDS RESUMED AT 100mL/HR PER ORDERS. ASSESSMENT COMPLETE. LUNG SOUNDS EXPIRATORY WHEEZE IN ANA. CLEAR IN RUL. CRACKLES IN RLL AND LLL. PT A&O TO SELF. ASKED PT WHAT THE DATE IS AND PT STATES "I DON'T KNOW." ASKED PT IF PT KNOWS WHAT THE YEAR IS AND PT STATES "UHH I AM NOT SURE." ASKED PT WHERE WE ARE AND PT STATES "[place]." ASKED PT WHAT BUILDING WE ARE IN AND PT STATES "WE ARE NOT IN A BUILDING." THIS RN ASKS PT WHERE PT AND THIS RN ARE IF WE ARE NOT IN A BUILDING AND PT STATES "WE ARE IN A PARKING GARAGE." INFORMED PT WE ARE IN [facility] AND PT STATES "WHAT ARE WE DOING HERE?" THIS RN INFORMS PT THAT THE PTs WAS CONCERNED REGARDING AMS AND THAT PT HAD A FALL PREVIOUSLY, PT STATES "OH YEAH." PT DENIES ANY NEEDS. CALL LIGHT IN REACH. BED ALARM ON. SIDE RAILS UP X4 FOR SAFTEY. FALL MATS IN PLACE.
--- NOTE | 2024-04-14 16:15 | NUR ---
IN WITH AMBROSIO PATEL PT NOTED TO BE INCONTINENT OF STOOL. LINENS ON BED CHANGED. GANGA-CARE PROVIDED, BARRIER CREAM APPLIED. NEW ATTENDS PLACED. NEW MALE PUREWICK PLACED. PT BOOSTED BACK UP IN BED. BLANKET PROVIDED. PT DENIES ANY OTHER NEEDS AT THIS TIME. CALL LIGHT IN REACH. BED ALARM ON. SIDE RAILS UP X4 FOR SAFTEY. FALL MATS IN PLACE.
--- NOTE | 2024-04-14 16:19 | NUR ---
PLAYER PIANO TECHNICIAN AND RN IN ROOM AT THIS TIME. PATIENT HAD BOWEL MOVEMENT IN BRIEFS, PLAYER PIANO TECHNICIAN AND RN CLEAND PATIENT AND PROVIDED NEW BRIEF, FRESH LINENS, AND NEW MALE PUREWICK. CALL LIGHT WITHIN [facility], NO FURTHER NEEDS AT THIS TIME.
--- NOTE | 2024-04-14 17:20 | NUR ---
IN TO ADMINISTER MEDICATION, SEE MAR. PT SITTING UP IN BED HIGH FOWLERS. PTs AT BEDSIDE. PT EATING DINNER. DR. HAQ TO DOOR TO SPEAK WITH PTs . PT REMAINS IN BED HIGH FOWLERS. BED ALARM ON, CALL LIGHT IN REACH. SIDE RAILS UP X4 FOR SAFTEY. FALL MATS IN PLACE. NO OTHER NEEDS FROM THIS RN.
[2024-04-14] MEDS ORDERED: ACYCLOVIR SOD 750 MG in DEXTROSE 5% 250 ML IV SCH (21:00)
--- NOTE | 2024-04-14 21:22 | NUR ---
PT ASSESSMENT COMPLETE. PT RESTING IN BED WITH EYES CLOSED. PT RESTLESS IN BED, KICKING LEGS. PT DROWSY, ANSWERS QUESTIONS BUT FALLS BACK TO SLEEP QUICKLY AFTER QUESTIONS. SPEECH IS GARBLED. LUNGS CLEAR TO BILATERALL UPPER LOBES. RLL COARSE, LLL COARSE WITH CRACKLES. DOES NOT CLEAR WITH COUGH. TELE # [address], HR 112. IRREGULAR. REPORTS NEEDING TO HAVE A BOWEL MOVEMENT, ATTENDS ALREADY SOILED. ATTENDS CHANGED, PT INCONTINENT X1. MALE PUREWICK CHANGED AT THIS TIME. COMPRESSION HOSE FROM HOME IN PLACE, NO EDEMA NOTED. PEDAL PULSES PRESENT BILATERALLY. IV FLUSHED WITH 10 ML NS, WNL. BED ALARM ACTIVE. ROOM IN VIEW OF RN STATION WITH CURTAIN OPEN. FALL MATS IN PLACE
--- NOTE | 2024-04-14 22:09 | NUR ---
CLINICAL RESEARCH MONITOR TO ROOM FOR IV PUMP ALARM. PT RESTLESS IN BED, KICKING LEGS AND GRABBING SIDE RAILS. PT STRAIGHTENS ARM ON REQUEST. PT ASKS FOR COFFEE, PROVIDED, THICKENED. PT DENIES NEEDS AT THIS TIME. CALL LIGHT IN REACH. BED ALARM ACTIVE. ROOM IN VIEW OF RN STATION WITH CURTAIN UPON. FALL MATS IN PLACE.
--- NOTE | 2024-04-14 23:42 | NUR ---
REPORT RECEIVED FROM NASH HUBBARD. pt IN BED RESTING. BED ALARM ON. NO NEEDS AT THIS TIME. CALL LIGHT WITHIN REACH.
[2024-04-15] VITALS (7 sets, daily range): BP systolic 143–174; BP diastolic 67–97
--- NOTE | 2024-04-15 01:33 | NUR ---
PRINCIPAL ELECTRICAL ENGINEER AND RN CHECKED PT BRIEF. PT BREIF CHANGED AND PUREWICK CANNISTER EMPTIED. PRINCIPAL ELECTRICAL ENGINEER AND RN OBTAINED AND DOCUMENTED VITALS AND I&O. PT STATES NO NEEDS AT THIS TIME. CALL LIGHT WITHIN REACH AND BED ALARM ON.
--- NOTE | 2024-04-15 03:50 | NUR ---
pt RESTING IN THE BED WITH EYES CLOSED. RR EVEN AND UNLABORED. CALL LIGHT WITHIN REACH.
[2024-04-15 05:51] LABS: HEMATOCRIT 43.9 % (35.0-50.0); MCH 27.1 (27-36); MCHC 34.1 g/dl (30-36); MCV 79.5 fl (81-99); PLATELET COUNT 357 K/uL (140-440); RBC 5.53 M/ul (4.3-5.7); RDW 14.8 (10.5-15.0)
[2024-04-15 05:56] LABS: ANION GAP 11.8 (7-21); BUN/CREATININE RATIO 13.6 (6.0-28.6); CALCIUM 10.3 mg/dL (8.5-10.1); CREATININE, SERUM 1.25 mg/dL (0.70-1.30); MAGNESIUM 1.9 mg/dL (1.8-2.4); POTASSIUM 3.8 mmol/L (3.5-5.1)
--- NOTE | 2024-04-15 06:14 | NUR ---
pt RESTED THROUGHOUT THE NIGHT. pt A&O TO SELF. NO NEW DEFICITS. pt HR IN THE 90'S TO LOW 100'S THROUGH OUT THE NIGHT. NO CONCERNS AT THIS TIME.
[2024-04-15 06:19] LABS: BASOPHILS, MANUAL DIFF 2; LYMPHOCYTES, MANUAL DIFF 26; MONOCYTES, MANUAL DIFF 13; NEUTROPHILS, MANUAL DIFF 59
--- NOTE | 2024-04-15 07:16 | NUR ---
Got report from street light servicer RN.
--- NOTE | 2024-04-15 08:11 | NUR ---
PATIENT IN BED. BUSINESS DEVELOPMENT ASSOCIATE TOOK PATIENTS BLOODSUGAR AND PROVIDED FRESH ICE WATER. CALL LIGHT WITHIN REACH, NO FURTHER NEEDS AT THIS TIME.
--- NOTE | 2024-04-15 08:41 | NUR ---
INTO CHECK ON PATIENT AND DO MORNING ASSESSMENT. DOCTOR CAME IN WELL. PATIENT GIVEN MEDICATIONS. PATIENT ALERT AND ORIENTED TO SELF. PATIENT VERY TALKATIVE THIS MORNING AND WANTS TO GO HOME. PATIENT IS CURRENTLY ON TELE. HE HAS CALL LIGHT WITHIN REACH, BED IN LOW POSITION AND PADS ON FLOOR. BED ALARM ON. PATIENT GIVEN THICKENED LIQUID WATER. IV MEDICATIONS GOING. PATIENT HAS PUREWICK ON. PATIENT DENIES ANY OTHER CARES AT THIS TIME, PATIENT SAT UP AND WAITING FOR BREAKFAST. DENIES ANY PAIN CURRENTLY. NIKOLAI NAHIDE ON FROM HOME.
--- NOTE | 2024-04-15 10:13 | NUR ---
PT IS CURRENTLY WORKING WITH PATIENT, INSURANCE VERIFICATION SPECIALIST IN HELPING.
--- NOTE | 2024-04-15 11:03 | NUR ---
PATIENT IN BED AT THIS TIME. SQUAD BOSS CHARTED VITALS AND I&O'S. CALL LIGHT WITHIN REACH, NO FURTHER NEEDS AT THIS TIME.
[2024-04-15] MEDS ORDERED: INSULIN GLARGINE-YFGN 100 UNIT/ML ML SUB-Q SCH (11:45)
[2024-04-15] MEDS ORDERED: PANTOPRAZOLE SODIUM 40 MG TABEC PO SCH (11:48)
--- NOTE | 2024-04-15 12:10 | NUR ---
PATIENT INSULIN GIVEN, PATIENT IS LONELY. IV FLUIDS RUNNING NOW. TV IS ON, CURTAINS ARE OPEN.
--- NOTE | 2024-04-15 13:30 | NUR ---
Patient up to the chair, at bedside. Bed changed, new purewick placed. Patient would like to help him shave and do some of his cares.
--- NOTE | 2024-04-15 13:56 | NUR ---
PATIENT IN CHAIR AT THIS TIME. SHOP COORDINATOR CHARTED VITALS AND I&O'S. SHOP COORDINATOR AND RN ASSISTED PATIENT IN BOOSTING IN THE CHAIR. CALL LIGHT WITHIN REACH, NO FURTHER NEEDS AT THIS TIME.
--- NOTE | 2024-04-15 14:51 | NUR ---
PATIENT CURRENTLY UP IN THE CHAIR. PATIENTS IS HERE READING A BOOK TO HIM.
[2024-04-15 16:12] LABS: HIV 1,2 COMBO ANTIGEN/ANTIBODY Negative (Negative)
--- NOTE | 2024-04-15 16:28 | NUR ---
OVERALL PATIENT HAD A GOOD DAY. PATIENT WORKED WITH PT AND THIS NURSE WAS ADVISED PATIENT DID WELL WITH THE WALKER BUT GOT TIRED EASY. PATIENT THIS AFTERNOON WAS A HEAVY 2PA WITH GAIT BELT AND WALKER TO THE CHAIR. PATIENT WAS UP IN THE CHAIR FOR A FEW HOURS WHILE WAS HERE. PATIENT IS A&O TO SELF AND IMPROVES OFF AND ON THROUGHOUT THE DAY. NEW PUREWICK PLACED AND BED CHANGED. PATIENT GOT SHAMPOO CAP AND CLEANED UP AND SHAVED BY . PATIENT HAS IV FLUIDS GOING. TELE WAS DC'D TODAY. PATIENT HAS MILD THICK LIQUIDS AND NEEDS STRAW. NO COMPLICATIONS TODAY ON THIS. PATIENT HAS BED ALARM AND CHAIR ALARM. PATIENT IS LONELY AND LIKES TO TALK. PATIENT IS ON BLOOD SUGAR CHECKS AND DID REQUIRE 5 AND 9 UNITS SO FAR TODAY.
--- NOTE | 2024-04-15 19:16 | NUR ---
REPORT RECEIVED FROM DAY SHIFT RN. PT LYING IN BED RESTING WITH EYES CLOSED. RESPIRATIONS EVEN. CALL LIGHT IN REACH. BED ALARM FOR SAFETY.
--- NOTE | 2024-04-15 20:11 | NUR ---
THIS AUTOMATIC SPREADER OPERATOR IN TO DO VITALS AND I&O'S. VITALS AND I&O'S DONE AND CHARTED. LINENS CHANGED. NEW GOWN IN PLACE. RN IN ROOM. CALL LIGHT IN REACH. NO FURTHER NEEDS AT THIS TIME.
--- NOTE | 2024-04-15 20:38 | NUR ---
EVENING ASSESSMENT COMPLETE. SCHEDULED MEDS ADMIN PER EMAR. PT REPORTS HEADACHE PAIN BUT UNABLE TO GIVE A NUMBER. ATTEMPTED TO ADMIN PO TYLENOL WITH A SIP OF WATER FIRST. PT WITH MILD COUGHING AFTER THICKENED LIQUIDS. TN TYLENOL ADMIN INSTEAD OF PO. PT ORIENTED TO SELF AT THIS TIME. LINENS AND GOWN CHANGED AFTER GANGA CARE DUE TO MALE PUREWICK NOT WORKING PROPERLY. BARRIER CREAM APPLIED TO COCCYX AREA. PT ON WAFFLE OVERLAY MATTRESS. TELE #[address] SR. HR 90'S. NO FURTHER NEEDS AT THIS TIME. CALL LIGHT IN REACH. BED ALARM FOR SAFETY.
--- NOTE | 2024-04-15 21:14 | NUR ---
ORDER TO DC TELE RECEIVED VIA PHONE. MEDSU CHARGE NOTIFIED.
--- NOTE | 2024-04-15 22:12 | NUR ---
IV PUMP ALARMING. ISSUE RESOLVED. PT AWAKE, CONFUSED ON LOCATION. WANTS TO GO HOME. ATTEMPTED TO REORIENT. ASSISTED TO REPOSITION. NO FURTHER NEEDS. BED ALARM IN PLACE. PT IN VIEW OF NURSES STATION.
--- NOTE | 2024-04-15 22:50 | NUR ---
IV PUMP ALARMING. ISSUE RESOLVED. PT RESTLESS ATTEMPTING TO GET OOB. ATTEMPTED TO REORIENT PT REPEATS "I WANT TO GO HOME" REASSURANCE PROVIDED. ASSISTED TO REPOSITION IN BED. BED ALRM IN PLACE. CALL LIGHT IN REACH.
[2024-04-16] VITALS (8 sets, daily range): BP systolic 140–160; BP diastolic 81–95
--- NOTE | 2024-04-16 01:00 | NUR ---
FILTER PRESS TENDER TO ROOM FOR BED ALARM SOUNDING. PT WITH LEGS OVER THE EDGE OF BED. PT STATES HE "NEEDS TO DUMP HIS LOAD". PT REMINDED HE HAS A PUREWICK IN PLACE. PT ASSISTED TO PLACE LEGS BACK IN BED. DENIES FURTHER NEEDS. CALL LIGHT IN REACH. BED ALARM ACTIVE. ROOM IN VIEW OF RN STATION WITH CURTAIN OPEN. FALL MATS IN PLACE.
--- NOTE | 2024-04-16 02:59 | NUR ---
PT RESTING IN BED WITH EYES CLOSED. RESPIRATIONS EVEN. CALL LIGHT IN REACH. BED ALARM FOR SAFETY. PT IN VIEW OF NURSES STATION.
--- NOTE | 2024-04-16 05:18 | NUR ---
PATIENT INCONT OF STOOL. PATIENTS BEDDING CHANGED. GANGA CARE COMPLETED. NEW ATTEND IN PLACE. PATIENTS VITALS TAKEN AND RECORDED. INTAKE AND OUTPUT RECORDED. PATIENT HAS MALE PUREWICK IN PLACE. PATIENT REPOSITIONED IN BED. PATIENT PROVIDED SIPS OF WATER. NAD NOTED. PATIENTS BED ALARM ON FOR SAFETY.
[2024-04-16 05:38] LABS: ANION GAP 12.6 (7-21); BUN/CREATININE RATIO 11.9 (6.0-28.6); CALCIUM 10.6 mg/dL (8.5-10.1); CREATININE, SERUM 1.26 mg/dL (0.70-1.30); POTASSIUM 3.6 mmol/L (3.5-5.1)
--- NOTE | 2024-04-16 07:00 | NUR ---
Pt report received at 0700 from STEVIE Shaw. Pt is awake, oriented to self and that he lives at [place]. He talks about his ex-. Pt is unable to tell me the date, knows he is in [place], but wasn't able to tell me that he is in the hospital. Pt is alert and pleasant. Pt denies any needs at this time. Pt does report that his back hurts when he moves and that his neck hurts and he has a headache. When instructed to tuck his chin to his chest, the pt states that he can't because his neck is stiff. When asked if he'd like a hot pack, he states that he's tried that and it doesn't work. White board updated. Side rails up x4, floor mats down, call light in reach, wall suction to purewick active.
[2024-04-16] MEDS ORDERED: IPRATROPIUM BROMIDE 2.5 ML VIAL INH SCH (08:00)
[2024-04-16] MEDS ORDERED: INSULIN LISPRO 100 UNIT/ML ML SUB-Q SCH (08:00)
[2024-04-16] MEDS ORDERED: ASPIRIN 81 MG TABEC PO SCH (09:00)
[2024-04-16] MEDS ORDERED: INSULIN GLARGINE-YFGN 100 UNIT/ML ML SUB-Q SCH (09:00)
[2024-04-16] MEDS ORDERED: LOSARTAN POTASSIUM 25 MG TAB PO SCH (09:17)
--- NOTE | 2024-04-16 12:07 | NUR ---
Spoke with Dr. Gleason about pt's c/o stiff neck, pain in his neck. I placed a rolled up towel behind his head for positioning and elevated the HOB more to a sitting position and the pt states that feels better for now. Dr. Gleason advised he will consider ordering a lidocaine patch.
--- NOTE | 2024-04-16 13:43 | NUR ---
PATIENT SITTING UP IN BED RESTING AT THIS TIME. VITALS AND I&O'S DONE AND CHARTED. CALL LIGHT IN REACH. NO FURTHER NEEDS AT THIS TIME.
[2024-04-16 18:32] LABS: TREPONEMA PALLIDUM AB BY TP-PA Non Reactive (Non Reactive)
--- NOTE | 2024-04-16 19:28 | NUR ---
REPORT RECEIVED FROM DAY SHIFT RN. PT LYING IN BED RESTING WITH EYES CLOSED. RESPIRATIONS EVEN. BED ALARM FOR SAFETY. CALL LIGHT IN REACH.
--- NOTE | 2024-04-16 21:45 | NUR ---
EVENING ASSESSMENT COMPLETE. SCHEDULED MEDS ADMIN PER EMAR. PT DENIES PAIN OR NAUSEA. PT ORIENTED TO SELF. VS AND I&O OBTAINED. MALE PUREWICK IN PLACE PATENT WITH YELLOW URINE. 2PA TO REPOSITION IN BED. WARM BLANKET PROVIDED. PT DENIES FURTHER NEEDS. CALL LIGHT IN REACH. BED ALARM FOR SAFETY.
--- NOTE | 2024-04-16 23:59 | NUR ---
PT RESTING IN BED WITH EYES CLOSED. RESPIRATIONS EVEN. BED ALARM FOR SAFETY. CALL LIGHT IN REACH.
[2024-04-17] VITALS (9 sets, daily range): BP systolic 132–154; BP diastolic 71–92
--- NOTE | 2024-04-17 02:30 | NUR ---
PT PULLED GOWN AND MALE PUREWICK OFF. INCONTINENT OF URINE. LINEN AND GOWN CHANGED. NEW PUREWICK PLACED AFTER GANGA CARE. PT SOMEWHAT ABLE TO FOLLOW DIRECTIONS AND ASSIST WITH CARES. 2PA TO REPOSITION IN BED. PT REPORTS HEADACHE/NECK PAIN BUT UNABLE TO GIVE A NUMBER. PRN FOR PAIN ADMIN PER EMAR. SIPS OF THICKENED LIQUIDS GIVEN. PT REMINDED TO CHIN TUCK. NO COUGHING OR CHOKING NOTED. HOB ELEVATED. WARM BLANKET PROVIDED. NO FURTHER NEEDS. BED ALARM FOR SAFETY.
--- NOTE | 2024-04-17 04:31 | NUR ---
PT RESTING IN BED WITH EYES CLOSED. RESPIRATIONS EVEN. BED ALARM IN PLACE. CALL LIGHT IN REACH.
[2024-04-17 05:43] LABS: ANION GAP 12.7 (7-21); BUN/CREATININE RATIO 13.28 (6.0-28.6); CALCIUM 10.6 mg/dL (8.5-10.1); CREATININE, SERUM 1.28 mg/dL (0.70-1.30); POTASSIUM 3.7 mmol/L (3.5-5.1)
--- NOTE | 2024-04-17 05:45 | NUR ---
LAB IN FOR MORNING DRAW. VS AND I&O OBTAINED. 2PA TO REPOSITION IN BED. SIPS OF WATER PROVIDED. BED ALARM FOR SAFETY. CALL LIGHT IN REACH.
--- NOTE | 2024-04-17 06:58 | NUR ---
Pt report received from STEVIE Shaw. Lab is currently in with pt.
[2024-04-17] MEDS ORDERED: ENOXAPARIN SODIUM 40 MG/0.4 ML SYR SUB-Q SCH (09:00)
--- NOTE | 2024-04-17 10:47 | NUR ---
SPOKE WITH PATIENT AND SPOUSE, GONZALO. SPOUSE STATES SHE FEELS PATIENT IS IMPROVING AND COULD RETURN TO [facility] WITH HER. STATES SHE CAN HELP WITH CARES. AGREEABLE TO HOME HEALTH PT/OT IF RECOMMENDED. STATES HE WAS PREVIOUSLY SUPPOSED TO BE BE ADMITTED TO HOME HEALTH, BUT HAD A DOCTOR'S APPOINTMENT THAT DAY AND THEY MISSED HOME HEALTH. SHE WAS UPSET BECAUSE SHE STATES THEY DID NOT NOTIFY HER, BUT THEY NOTIFIED THE PATIENT AND HE DID NOT REMEMBER GETTING CALL. INFORMED HER HOME HEALTH WOULD BE NOTIFIED TO CONTACT HER PRIMARILY. HUAN DENIES ANY OTHER CM NEEDS. IMM LETTER DISCUSSED WITH PATIENT AND SPOUSE. GLENN SIGNS IMM LETTER, COPY PROVIDED.
--- NOTE | 2024-04-17 12:46 | NUR ---
Patient was deeply asleep and their lunch untouched. Tray was left within reach for when they wake up.
--- NOTE | 2024-04-17 13:00 | NUR ---
VISITED DURING SPIRITUAL CARE ROUNDS. PT APPEARED TO BE SLEEPING. DID NOT DISTURB. PROVIDED PRAYER.
[2024-04-17 16:09] LABS: CRYPTOC NEOFORMANS/GATTII PCR Not Detected (()); ENTEROVIRUS BY PCR Not Detected (()); ESCHERICHIA COLI K1 BY PCR Not Detected (()); HAEMOPHILUS INFLUENZAE BY PCR Not Detected (()); HERPES SIMPLEX VIRUS 1 BY PCR Not Detected (()); HERPES SIMPLEX VIRUS 2 BY PCR Not Detected (()); LISTERIA MONOCYTOGENES BY PCR Not Detected (()); NEISSERIA MENINGITIDIS BY PCR Not Detected (())
--- NOTE | 2024-04-17 17:08 | NUR ---
Pt is up in chair, bedside table across his lap. Call light in reach.
--- NOTE | 2024-04-17 18:41 | NUR ---
In with pt to assist him back to bed after dinner. The pt is asleep, breathing regular, even and non-labored, slouched down in the reclining chair. Bedside table with his dinner across his lap. Pt awakens easily to voice but refuses to open his eyes. Pt is oriented to self and the town he's in but not where he is. Shampoo and bed bath performed while pt in chair to attempt to wake him up more. Pt assisted to a fully upright position on the chair and a kal sling placed underneath him. Pt transferred back to bed via kal lift and diaper care performed at this time. Small smear of stool noted in diaper as well as an even smaller smear of bright red blood. Skin appears to be intact; however, redness still noted at superior gluteal cleft. Skin wiped down well and barrier cream applied, clean diaper applied and new male external catheter applied after wipes used to cleanse the penis and shaft. CBG checked d/t pt's lethargy and a CBG of 217 was noted. Bedside table, call light in reach, side rails up x4.
--- NOTE | 2024-04-17 19:04 | NUR ---
Nurse and I worked together to give the patient a bed bath. They were extremely lethargic and could not keep their eyes open. Charge nurse was called in and the decision to use the kal to lift patient from their chair into bed. The patient continued to be extremely lethargic, vitals were taken and were slightlty elevated. Once in bed with a new pure wick place by the nurse, no other cares were needed.
--- NOTE | 2024-04-17 19:34 | NUR ---
REPORT RECEIVED FROM DAY SHIFT RN. PT LYING IN BED RESTING WITH EYES CLOSED. RESPIRATIONS EVEN. CALL LIGHT IN REACH. BED ALARM FOR SAFETY.
--- NOTE | 2024-04-17 20:45 | NUR ---
PT RESTING WITH EYES CLOSED. AWAKENS EASILY. VS AND I&O OBTAINED. EVENING ASSESSMENT COMPLETE. SCHEDULED MEDS ADMIN PER EMAR. PT ORIENTED TO SELF. ABLE TO FOLLOW COMMANDS AND ANSWER QUESTIONS. 2PA TO REPOSITION IN BED. MALE PUREWICK PATENT WITH YELLOW URINE. WARM BLANKET PROVIDED. NO FURTHER NEEDS. BED ALARM FOR SAFETY. CALL LIGHT IN REACH.
--- NOTE | 2024-04-17 22:45 | NUR ---
PT RESTING IN BED WITH EYES CLOSED. RESPIRATIONS EVEN. CALL LIGHT IN REACH.
--- NOTE | 2024-04-18 00:24 | NUR ---
PT INCONTINENT OF MEDIUM AMOUNT SOFT BM. GANGA CARE DONE. PT ABLE TO FOLLOW SIMPLE INSTRUCTIONS TO ASSIST WITH CARES. 2PA TO REPOSITION IN BED. HOB ELEVATED. SIPS OF THICKENED LIQUID PROVIDED. NO COUGHING OR CHOKING NOTED. NO FURTHER NEEDS. CALL LIGHT IN REACH. BED ALARM FOR SAFETY.
--- NOTE | 2024-04-18 02:45 | NUR ---
PT RESTING IN BED IN RELAXED POSITION. EYES CLOSED. RESPIRATIONS EVEN. BED ALARM FOR SAFETY. PT IN VIEW OF NURSES STATION.
--- NOTE | 2024-04-18 04:19 | NUR ---
IN TO ASSIST PT TO REPOSITION IN BED. WARM BLANKET PROVIDED. PT REPORTS HE IS COMFORTABLE AT THIS TIME. CALL LIGHT IN REACH. BED ALARM FOR SAFETY.
[2024-04-18 05:10] VITALS: BP 179/96
[2024-04-18 05:13] VITALS: BP 179/96
--- NOTE | 2024-04-18 06:01 | NUR ---
VS AND I&O OBTAINED. MALE [email or web address] PATENT WITH QS CLEAR YELLOW URINE. ATTENDS DRY. 2PA TO REPOSITION IN BED. PT TAKING CLOTHES OFF DESPITE REDIRECTION. GOWN LEFT OFF AT THIS TIME. WARM BLANKETS PROVIDED. NO FURTHER NEEDS. BED ALARM FOR SAFETY. CALL LIGHT IN REACH.
--- NOTE | 2024-04-18 07:15 | NUR ---
REPORT RECEIVED FROM STEVIE HARMON. PT RESTING IN EYES CLOSED, RR EVEN AND UNLABORED. PT NOTED TO BE RESTLESS IN BED, CLEAR YELLOW URINE DRAINING FROM PUREWICK. BED ALARM ON. NO NEEDS NOTED AT THIS TIME, CALL LIGHT AND PERSONAL BELONGINGS IN REACH.
--- NOTE | 2024-04-18 08:04 | NUR ---
PATIENT IN BED AT THIS TIME. WELLNESS ASSISTANT WENT INTO PATIENT ROOM TO FOR PATIENT ROUNDINGS AND BLOOD SUGAR HAS BEEN TAKEN. CALL LIGHT WITHIN REACH, NO FURTHER NEEDS AT THIS TIME.
[2024-04-18 08:15] VITALS: BP 144/88
--- NOTE | 2024-04-18 08:15 | NUR ---
IN FOR INITIAL ASSESSMENT AND MEDICATION ADMINISTRATION PER MAR. AMBROSIO AGUAYO ALSO PRESENT PT IS READY TO GET UP INTO RECLINER. PT SITS ON EDGE OF BED WITH MINIMAL ASSISTANCE, STANDS WITH MODERATE IMPRESSION PRINTER. PT NOTED WITH MALE PUREWICK IN PLACE, DRAINING CLEAR YELLOW URINE AND SOFT BM IN BRIEF. PT ASKED IF HE NEEDS TO USE THE RESTROOM, PT STATES HE DOES, PT AMBULATES WITH MODERATE ASSISTANCE A FEW STEPS. PT ASKS WHAT HE IS DOING. PT INFORMED HE IS WALKING TO THE RESTROOM. PT STATES HE DOES NOT NEED THE RESTROOM. CAN DEDE BRING RECLINER CHAIR CLOSEBY, PT OFFERED TO SIT IN RECLINER BUT STATES HE NEEDS TO USE THE RESTROOM. AMBROSIO AND THIS RN AMBULATE PT TO RESTROOM WITH MODERATE ASSISTANCE, PT CANNOT FOLLOW DIRECTIONS ENOUGH TO MAKE IT TO TOILET SO BSC IS PULLED UP INSTEAD. PT SITS ON BSC FOR A FEW MINUTES BUT DOES NOT HAVE A MOVEMENT. PT STATES HE WANTS TO GET OUT OF HERE. PT ASSISTED TO STAND, AMBROSIO AGUAYO CLEANS HIM UP AND NEW BRIEF IS APPLIED. RECLINER IS MOVED CUSTODIAL INTO BATHROOM SO PT WILL NOT HAVE TO AMBULATE FAR, PT SITS IN RECLINER. RECLINER MOVED TO ROOM AND PT MADE COMFORTABLE. RT ARRIVES TO GIVE PT BREATHING TREATMENT. ASSESSMENT AND MEDICATION ADMINISTRATION COMPLETE. PT LUNG SOUNDS CLEAR IN UPPER LOBES, DIMINISHED IN LOWER LOBES, HEART TONES HEARD, TACHY, NOTED HR AT 111. PT ABD ACTIVE, NONTENDER. PULSES FELT STRONG IN ALL FOUR EXTREMETIES, STATES NO N/T. PT ASKED "WHAT MONTH IS IT?" PT STATES "IT'S BATOOL!" PT ASKED WHAT YEAR IT IS, PT STATES "1973 ISN'T IT?" PT ASKED WHO THE PRESIDENT IS "JAZMIN". PT UNSURE WHERE HE IS OR WHY HE IS HERE. EDUCATED AND REORIENTED PT TO WHERE HE IS AT AND WHY HE IS HERE. PT WITH MINIMAL UNDERSTANDING. PT BREAKFAST TRAY PLACED IN FRONT OF HIM, PT BEGINS TO PICK AT FOOD BUT STATES "I ALREADY ATE BREAKFAST". ASSISTED PT TO TAKE BITES WITH HIS FORK, PT EATS WITH ASSISTANCE. NO OTHER NEEDS AT THIS TIME, CALL LIGHT AND PERSONAL BELONGINGS IN REACH.
--- NOTE | 2024-04-18 08:18 | NUR ---
GOT PT UP AND TOOK HIM TO THE RESTROOM. NURSE WAS IN THE ROOM TO HELP ME. AFTER THE RESTROOM WE GOT HIM UP TO THE CHAIR. CALL LIGHT IS WITHIN REACH PT DIDNT NEED ANYTHING ELSE
[2024-04-18] MEDS ORDERED: INSULIN GLARGINE-YFGN 100 UNIT/ML ML SUB-Q SCH (09:00)
[2024-04-18 09:30] VITALS: BP 128/80
[2024-04-18 09:40] VITALS: BP 128/80
[2024-04-18 10:05] LABS: CALCIUM IONIZED PH 7.4 1.42 mmol/L (1.09-1.30); CALCIUM,IONIZED SERUM 1.4 mmol/L (1.09-1.30)
--- NOTE | 2024-04-18 10:11 | NUR ---
IN WITH STEVIE PALACIOS AND SN KHAN TO ADMINISTER FLU VACCINE PRIOR TO DISCHARGE. PTs CONSENTS. DR HAQ ARRIVES TO SPEAK WITH PT AND PTs , ANSWERS QUESTIONS AND STATES PT IS READY TO GO BACK HOME. PUT UP IN RECLINER WITH BESIDE HIM. NO OTHER NEEDS AT THIS TIME, CALL LIGHT AND PERSONAL BELONGINGS IN REACH.
--- NOTE | 2024-04-18 10:29 | NUR ---
NOTIFIED KENN ESPINOZA, PATIENT WILL BE RETURNING TODAY. SPOUSE, GLENN, REQUESTS PATIENT BE TRANSPORTED BY [facility] SHE DOES NOT FEEL SHE CAN SAFELY TRANSPORT PATIENT.
[2024-04-18] MEDS ORDERED: INSULIN GL100 UNIT/1 SUB-Q (10:37)
--- NOTE | 2024-04-18 10:51 | NUR ---
CALLED [facility]. THEY ARE ABLE TO TRANSPORT PATIENT AT 2:30 THIS AFTERNOON. SPOUSE, GLENN AND NURSING STAFF NOTIFIED.
--- NOTE | 2024-04-18 10:58 | NUR ---
PT NOT AVAILABLE FOR VISIT. PROVIDED PRAYER.
--- NOTE | 2024-04-18 11:12 | NUR ---
CLINICALS AND ORDERS FAXED TO [facility].
--- NOTE | 2024-04-18 12:15 | NUR ---
CALL RECEIVED FROM STEVIE STEVENS AT [facility] WITH QUESTIONS REGARDING PTs DISCHARGE MEDICATIONS. MEDICATIONS CLARIFIED WITH DR HAQ, NEW PRESCRIPTIONS PRINTED PER [facility] REQUESTS. PT UP IN RECLINER, LUNCH TRAY ARRIVES, PT SET UP TO EAT LUNCH ASKING "IS IT 2O'CLOCK YET?" RE-ORIENTED PT TO TIME AND SET UP HIS LUNCH FOR HIM. NO OTHER NEEDS AT THIS TIME, CALL LIGHT AND PERSONAL BELONGINGS IN REACH.
[2024-04-18] MEDS ORDERED: LANTUS SOL100 UNIT/1 SUB-Q (12:20)
[2024-04-18] MEDS ORDERED: NOVOLOG FL100 UNIT/1 SUB-Q (12:20)
--- NOTE | 2024-04-18 12:24 | NUR ---
PATIENT IN BED AT THIS TIME. RADAR TESTER WENT INTO ROOM FOR PATIENT ROUNDINGS AND BLOODSUGAR HAS BEEN TAKEN. CALL LIGHT WITHIN REACH, NO FURTHER NEEDS AT THIS TIME.
[2024-04-18 13:20] VITALS: BP 124/74
[2024-04-18 21:12] LABS: PARATHYROID HORMONE,INTACT 81 pg/mL (15-65)
== END 2024-04-18 14:40 | disposition home or self-care (01) | DRG 75 ==
LOC: ED 09:16 → MS 14:28
PROVIDERS: Emergency Medicine; Student in an Organized Health Care Education/Training Program; ADMIT Student in an Organized Health Care Education/Training Program; ATTEND Student in an Organized Health Care Education/Training Program
PROC: 00JU3ZZ Inspection of Spinal Canal, Percutaneous Approach (ICD-10-PCS; principal; 2024-04-13)
DX: A87.9 Viral meningitis, unspecified (principal); G93.49 Other encephalopathy; N17.9 Acute kidney failure, unspecified; E11.9 Type 2 diabetes mellitus without complications; Z86.73 Personal history of transient ischemic attack (TIA), and cerebral infarction without residual deficits; K21.9 Gastro-esophageal reflux disease without esophagitis; I10 Essential (primary) hypertension; W19.XXXA Unspecified fall, initial encounter; M43.22 Fusion of spine, cervical region; F03.A0 Unspecified dementia, mild, without behavioral disturbance, psychotic disturbance, mood disturbance, and anxiety; E78.00 Pure hypercholesterolemia, unspecified; G25.81 Restless legs syndrome; F11.90 Opioid use, unspecified, uncomplicated; J44.9 Chronic obstructive pulmonary disease, unspecified; Z90.49 Acquired absence of other specified parts of digestive tract; Z98.890 Other specified postprocedural states; Z79.82 Long term (current) use of aspirin; Z79.4 Long term (current) use of insulin; Z79.899 Other long term (current) drug therapy; G93.89 Other specified disorders of brain
CPT/HCPCS: 36415; 62270; 70450; 71045; 72125; 80048; 80053; 80307; 81001; 82140; 82553; 82945; 82947; 83605; 83690; 83735; 83880; 83970; 84157; 84443; 84484; 85025; 85610; 85730; 87040; 87070; 87075; 87205; 87502; 89051; 90694; 92526; 92610; 93005; 93010; 94640; 94760; 96365; 96375; 97110; 97162; 97166; 97530; 97535; 99285-25; A9270; G0480; J0133; J0360; J0692; J1644; J1650; J1815; J2060; J7030; J7060; J7121; U0002

== ENCOUNTER 2024-04-20 12:09 | Inpatient (IN) | payer MEDICARE, OTHER ==
[~2024-04-20] VITALS: Ht 172.7 cm; Wt 75.9 kg
[~2024-04-20 12:09] MED LIST changes: +EUCERIN ADVANC454 GM TOP; +INSULIN GL100 UNIT/1 SUB-Q; +LUBRICANT EYE3.5 G3 OU
--- OUTSIDE RECORDS SUMMARY | 2024-04-20 12:15 | XMS ---
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 E.DRonna VISIT COUNT (12 MO.) 7 [facility]INCESS Garcia TOTAL 7 NOTE: Visits indicate total known visits. 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 - MCFP (current) use of oral hypoglycemic drugs - Other exterminator helper (current) drug therapy - Personal history of transient ischemic attack (TIA), and cerebral infarction without residual deficits - Pure hypercholesterolemia, unspecified - Type 2 diabetes mellitus without complications - Weakness 01/13/2024 08:02 [facility] TYPE: Emergency COMPLAINT: - LETHARGIC DIAGNOSES: - COVID-19 - Essential (primary) hypertension - Gastro-esophageal reflux disease without esophagitis - 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 - MCFP (current) use of insulin - buttermilk drier operator (current) use of oral hypoglycemic drugs - Other usp (current) drug therapy - Personal history of [...] - Gastro-esophageal reflux disease without esophagitis - MCFP (current) use of aspirin - MCFP (current) use of inhaled steroids - MCFP (current) use of insulin - buttermilk drier operator (current) use of oral hypoglycemic drugs - Other exterminator helper (current) drug therapy - Pain in left [...] - Gastro-esophageal reflux disease without esophagitis - MCFP (current) use of aspirin - MCFP (current) use of insulin - MCFP (current) use of oral hypoglycemic drugs - Other exterminator helper (current) drug therapy - Personal history of transient ischemic attack (TIA), and cerebral infarction without residual deficits - Pure hypercholesterolemia, unspecified - Restless legs syndrome - Type 2 diabetes mellitus without complications - Unspecified dementia, unspecified severity, without behavioral disturbance, psychotic disturbance, mood disturbance, and anxiety - Unspecified injury of head, initial encounter INPATIENT VISIT TRACKING (12 MO.) 04/13/2024 14:28 [facility] TYPE: Medical Surgical COMPLAINT: - ACUTE ENCEPHALOPATHY DIAGNOSES: - Acquired absence of other specified parts of digestive tract - Acute kidney failure, unspecified - Chronic obstructive pulmonary disease, unspecified - Essential (primary) hypertension - Fusion of spine, cervical region - Gastro-esophageal reflux disease without esophagitis - 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 - MCFP (current) use of insulin - Opioid use, unspecified, uncomplicated - Other encephalopathy - Other usp (current) drug therapy - Other specified disorders of brain - Other specified postprocedural states - Personal history of transient ischemic attack (TIA), and cerebral infarction without residual deficits - Pure hypercholesterolemia, unspecified - Restless legs syndrome - Type 2 diabetes mellitus without complications - Unspecified dementia, mild, without behavioral disturbance, psychotic disturbance, mood disturbance, and anxiety - Unspecified fall, initial encounter - Viral meningitis, unspecified 11/23/2023 13:19 [facility] TYPE: Medical [...] non-dominant side - Hypomagnesemia - Hypomagnesemia - 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 - MCFP (current) use of aspirin - MCFP (current) use of inhaled steroids - MCFP (current) use of inhaled steroids - 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
[2024-04-20] MEDS ORDERED: SODIUM CHLORIDE 0.9% 500 ML IV ONE (12:30)
[2024-04-20 12:43] LABS: HEMOGLOBIN 13.2 g/dL (12.0-18.0); MCH 27.2 (27-36); MCV 80.1 fl (81-99); PLATELET COUNT 365 K/uL (140-440); RBC 4.87 M/ul (4.3-5.7); RDW 14.5 (10.5-15.0)
[2024-04-20 12:57] LABS: ALBUMIN/GLOBULIN RATIO 0.64 (1.1-2.4); ANION GAP 13.3 (7-21); BILIRUBIN, TOTAL 0.5 ng/dL (0.2-1.0); BUN/CREATININE RATIO 22.04 (6.0-28.6); CALCIUM 11.1 mg/dL (8.5-10.1); CREATININE, SERUM 1.86 mg/dL (0.70-1.30); POTASSIUM 4.3 mmol/L (3.5-5.1); PROTEIN, TOTAL 7.7 g/dL (6.4-8.2)
[2024-04-20 13:02] LABS: LYMPHOCYTES, MANUAL DIFF 23; MONOCYTES, MANUAL DIFF 11; NEUTROPHILS, MANUAL DIFF 66
[2024-04-20 14:07] LABS: BILIRUBIN, URINE NEGATIVE (negative); BLOOD/HGB, URINE NEGATIVE (Negative); KETONE, URINE NEGATIVE (Negative); LEUK ESTERASE, URINE NEGATIVE (negative); NITRITE, URINE NEGATIVE (negative)
[2024-04-20 14:16] LABS: BACTERIA, URINE NONE SEEN /hpf (negative); CASTS, URINE NONE SEEN \\lpf; COLLECTION TYPE, URINE CLEAN CATCH; CRYSTALS, URINE NONE SEEN (0-1+); EPITHELIAL CELLS, URINE SQUAMOUS 2+ /lpf (0-1+); RED BLOOD CELLS, URINE 0-1 /hpf (0-5); REFLEX CULTURE, URINE No (No)
[2024-04-20] MEDS ORDERED: SODIUM CHLORIDE 0.9% 1,000 ML IV SCH ×2 (15:45→17:30)
[2024-04-20] MEDS ORDERED: IBLOOD GLUCOSE TEST STRIP 1 EA TEST XX PRN (17:30)
[2024-04-20] MEDS ORDERED: ondansetron HCL 4 MG/2 ML VIAL IV PRN (17:30)
[2024-04-20] MEDS ORDERED: GLUCAGON,HUMAN RECOMBINANT 1 MG/ML VIAL SUB-Q PRN (17:30)
[2024-04-20] MEDS ORDERED: DEXTROSE 5% 1,000 ML IV PRN (17:30)
[2024-04-20] MEDS ORDERED: ACETAMINOPHEN 325 MG TAB PO PRN (17:30)
[2024-04-20] MEDS ORDERED: DEXTROSE 50% 50 ML SYR IV PRN ×2 (17:30)
[2024-04-20 18:04] VITALS: BP 171/95
[2024-04-20 20:50] VITALS: BP 180/97
[2024-04-20] MEDS ORDERED: IBLOOD GLUCOSE TEST STRIP 1 EA TEST VI SCH (21:00)
[2024-04-20] MEDS ORDERED: INSULIN LISPRO 100 UNIT/ML ML SUB-Q SCH (21:00)
[2024-04-20 21:30] VITALS: BP 184/96
[2024-04-20 22:12] VITALS: BP 184/96
[2024-04-20] MEDS ORDERED: hydrALAZINE HCL 20 MG/ML VIAL IV PRN (22:15)
[2024-04-20 23:37] VITALS: BP 144/79
[2024-04-20] MEDS ORDERED: LIDOCAINE 2% VISCOUS 6 ML SYR TOP ONE (23:45)
[2024-04-20] MEDS ORDERED: ALBUTEROL SULFATE 0.083% 3 ML VIAL INH PRN (23:45)
[2024-04-21] VITALS (12 sets, daily range): BP systolic 133–204; BP diastolic 79–92
[2024-04-21 05:30] LABS: BASOPHILS 1.3 % (0-2); EOSINOPHILS 0.9 % (0-6); HEMATOCRIT 41.3 % (35.0-50.0); HEMOGLOBIN 13.8 g/dL (12.0-18.0); LYMPHOCYTES 25.6 % (24-44); MCH 26.9 (27-36); MCHC 33.4 g/dl (30-36); MCV 80.5 fl (81-99); MONOCYTES 16.6 % (0-12); NEUTROPHILS 55.6 % (39-80); PLATELET COUNT 355 K/uL (140-440); RBC 5.13 M/ul (4.3-5.7); RDW 14.8 (10.5-15.0)
[2024-04-21 05:48] LABS: ALBUMIN/GLOBULIN RATIO 0.63 (1.1-2.4); ANION GAP 13.7 (7-21); BILIRUBIN, TOTAL 0.6 ng/dL (0.2-1.0); BUN/CREATININE RATIO 17.91 (6.0-28.6); CALCIUM 10.3 mg/dL (8.5-10.1); CREATININE, SERUM 1.34 mg/dL (0.70-1.30); MAGNESIUM 1.6 mg/dL (1.8-2.4); PHOSPHORUS, INORGANIC 2.4 mg/dL (2.5-4.9); POTASSIUM 3.7 mmol/L (3.5-5.1); PROTEIN, TOTAL 7.8 g/dL (6.4-8.2)
[2024-04-21] MEDS ORDERED: IPRATROPIUM BROMIDE 2.5 ML VIAL INH SCH (08:00)
[2024-04-21] MEDS ORDERED: MAGNESIUM SULFATE 2 GM/50 ML BAG IV ONE (08:15)
[2024-04-21] MEDS ORDERED: POTASSIUM PHOSPHATE 30 MMOL in DEXTROSE 5% 500 ML IV ONE (08:15)
[2024-04-21] MEDS ORDERED: HEParin SOD (PORCINE) 5,000 UNIT/ML SDV SUB-Q SCH (09:00)
[2024-04-21] MEDS ORDERED: MAGNESIUM CHLORIDE 64 MG TABCR PO ONE (09:30)
[2024-04-21] MEDS ORDERED: SOD PHOS MONO/SOD PHOS DIBAS 250 MG TAB PO ONE (09:30)
[2024-04-21] MEDS ORDERED: TAMSULOSIN HCL 0.4 MG CAP PO SCH (10:36)
[2024-04-21] MEDS ORDERED: LIDOCAINE 2% VISCOUS 6 ML SYR TOP ONE (10:45)
[2024-04-21] MEDS ORDERED: PHARMACY RENAL DOSE ADJUSTMENT 1 DOSE MISC PO SCH (12:00)
[2024-04-21] MEDS ORDERED: LIDOCAINE 2% VISCOUS 6 ML SYR ONE (13:49)
[2024-04-22] VITALS (10 sets, daily range): BP systolic 133–188; BP diastolic 56–96
[2024-04-22 05:36] LABS: EOSINOPHILS 1.4 % (0-6); HEMATOCRIT 38.4 % (35.0-50.0); LYMPHOCYTES 31.2 % (24-44); MCH 27.1 (27-36); MCHC 33.9 g/dl (30-36); MCV 79.9 fl (81-99); MONOCYTES 19.1 % (0-12); NEUTROPHILS 47.3 % (39-80); PLATELET COUNT 341 K/uL (140-440)
[2024-04-22 05:58] LABS: ALBUMIN 2.6 g/dL (3.4-5.0); ALBUMIN/GLOBULIN RATIO 0.59 (1.1-2.4); ANION GAP 14.5 (7-21); BILIRUBIN, TOTAL 0.6 ng/dL (0.2-1.0); BUN/CREATININE RATIO 17.42 (6.0-28.6); CALCIUM 9.6 mg/dL (8.5-10.1); CREATININE, SERUM 1.32 mg/dL (0.70-1.30); MAGNESIUM 1.6 mg/dL (1.8-2.4); POTASSIUM 3.5 mmol/L (3.5-5.1)
[2024-04-22] MEDS ORDERED: LIDOCAINE 2% VISCOUS 6 ML SYR TOP ONE (08:30)
[2024-04-22] MEDS ORDERED: MAGNESIUM SULFATE 2 GM/50 ML BAG IV ONE (08:30)
[2024-04-22] MEDS ORDERED: POTASSIUM CHLORIDE 40 MEQ,LIDOCAINE HCL 1% 40 MG in DEXTROSE 5% 250 ML IV ONE (08:45)
--- NOTE | 2024-04-22 21:18 | EKG ---
[facility] [address] [place] [address] Signed Sinus tachycardia with premature atrial complexes Otherwise normal ECG When compared with ECG of 13-APR-2024 16:45, premature ventricular complexes are no longer present premature atrial complexes are now present Nonspecific T wave abnormality, improved in Inferior leads Confirmed by Vanna Cole MD () on 04/22/2024 9:18:24 PM Electronically Signed By: VANNA COLE MD 04/22/[id number] PATIENT NAME: MICHELLE FELIX Electrocardiogram DATE OF : 40 PHYSICIAN: VANNA COLE MD REPORT #: [id number] REPORT IS CONFIDENTIAL AND NOT TO BE RELEASED WITHOUT AUTHORIZATION
[2024-04-23] VITALS (12 sets, daily range): BP systolic 144–163; BP diastolic 74–101
[2024-04-23 05:21] LABS: HEMATOCRIT 37.4 % (35.0-50.0); HEMOGLOBIN 12.7 g/dL (12.0-18.0); MCHC 33.9 g/dl (30-36); MCV 79.8 fl (81-99); PLATELET COUNT 333 K/uL (140-440); RBC 4.68 M/ul (4.3-5.7); RDW 15.3 (10.5-15.0)
[2024-04-23 05:39] LABS: ALBUMIN 2.7 g/dL (3.4-5.0); ALBUMIN/GLOBULIN RATIO 0.63 (1.1-2.4); ANION GAP 12.1 (7-21); BILIRUBIN, TOTAL 0.4 ng/dL (0.2-1.0); BUN/CREATININE RATIO 12.3 (6.0-28.6); CALCIUM 9.8 mg/dL (8.5-10.1); CREATININE, SERUM 1.3 mg/dL (0.70-1.30); POTASSIUM 4.1 mmol/L (3.5-5.1)
[2024-04-23 05:42] LABS: BASOPHILS, MANUAL DIFF 1; LYMPHOCYTES, MANUAL DIFF 24; MONOCYTES, MANUAL DIFF 9; NEUTROPHILS, MANUAL DIFF 66
[2024-04-23] MEDS ORDERED: LACTATED RINGER'S 1,000 ML IV SCH (08:30)
[2024-04-24 01:45] VITALS: BP 152/79
[2024-04-24 02:00] VITALS: BP 152/79
[2024-04-24 05:49] LABS: EOSINOPHILS 0.5 % (0-6); HEMATOCRIT 39.9 % (35.0-50.0); HEMOGLOBIN 13.3 g/dL (12.0-18.0); LYMPHOCYTES 20.2 % (24-44); MCH 26.8 (27-36); MCHC 33.4 g/dl (30-36); MCV 80.4 fl (81-99); MONOCYTES 13.5 % (0-12); NEUTROPHILS 64.8 % (39-80); PLATELET COUNT 387 K/uL (140-440); RBC 4.96 M/ul (4.3-5.7); RDW 15.3 (10.5-15.0)
[2024-04-24 06:02] LABS: ANION GAP 14.9 (7-21); BUN/CREATININE RATIO 13.22 (6.0-28.6); CALCIUM 10.1 mg/dL (8.5-10.1); CREATININE, SERUM 1.21 mg/dL (0.70-1.30); MAGNESIUM 1.8 mg/dL (1.8-2.4); POTASSIUM 3.9 mmol/L (3.5-5.1)
[2024-04-24 06:07] VITALS: BP 162/85
[2024-04-24 07:47] VITALS: BP 160/89
[2024-04-24] MEDS ORDERED: LOSARTAN POTASSIUM 25 MG TAB PO SCH (09:00)
[2024-04-24 09:45] VITALS: BP 152/82
[2024-04-24] MEDS ORDERED: TAMSULOSIN HCL0.4 MG PO (11:49)
[2024-04-24 12:22] VITALS: BP 129/86
== END 2024-04-24 12:30 | DRG 682 ==
LOC: ED 12:09 → MS 12:11
PROVIDERS: Emergency Medicine; ADMIT Family Medicine; ATTEND Family Medicine
DX: N17.9 Acute kidney failure, unspecified (principal); L89.153 Pressure ulcer of sacral region, stage 3; I69.354 Hemiplegia and hemiparesis following cerebral infarction affecting left non-dominant side; Z66 Do not resuscitate; E11.9 Type 2 diabetes mellitus without complications; R33.9 Retention of urine, unspecified; E83.42 Hypomagnesemia; E83.39 Other disorders of phosphorus metabolism; J44.9 Chronic obstructive pulmonary disease, unspecified; M48.02 Spinal stenosis, cervical region; E78.00 Pure hypercholesterolemia, unspecified; K21.9 Gastro-esophageal reflux disease without esophagitis; G25.81 Restless legs syndrome; Z79.899 Other long term (current) drug therapy; Z79.82 Long term (current) use of aspirin; Z79.84 Long term (current) use of oral hypoglycemic drugs; F03.90 Unspecified dementia, unspecified severity, without behavioral disturbance, psychotic disturbance, mood disturbance, and anxiety; Z95.1 Presence of aortocoronary bypass graft; Z90.49 Acquired absence of other specified parts of digestive tract; Z79.4 Long term (current) use of insulin
CPT/HCPCS: 36415; 51701; 51702; 51798; 71045; 72141; 80048; 80053; 81001; 83735; 84100; 85025; 93005; 93010; 94640; 96372; 96374; 97110; 97163; 97167; 97530; 97535; 99285-25; A9270; G0378; J0360; J1644; J1815; J3475; J3480; J3490; J7030; J7040; J7060; J7121

== ENCOUNTER 2024-11-03 16:35 | Emergency (ER) | payer OTHER, MEDICARE ==
[~2024-11-03] VITALS: Ht 172.7 cm; Wt 68.8 kg
[2024-11-03 17:11] LABS: EOSINOPHILS 0.8 % (0-6); HEMATOCRIT 30.8 % (35.0-50.0); HEMOGLOBIN 10.4 g/dL (12.0-18.0); LYMPHOCYTES 29.3 % (24-44); MCH 24.8 (27-36); MCHC 33.6 g/dl (30-36); MCV 73.8 fl (81-99); MONOCYTES 13.7 % (0-12); NEUTROPHILS 55.2 % (39-80); PLATELET COUNT 373 K/uL (140-440); RBC 4.18 M/ul (4.3-5.7); RDW 16.3 (10.5-15.0)
[2024-11-03 17:29] LABS: ALBUMIN 2.7 g/dL (3.4-5.0); ALBUMIN/GLOBULIN RATIO 0.68 (1.1-2.4); ANION GAP 10.5 (7-21); BILIRUBIN, TOTAL 0.4 mg/dL (0.2-1.0); BUN/CREATININE RATIO 25.33 (6.0-28.6); CALCIUM 9.7 mg/dL (8.5-10.1); CREATININE, SERUM 1.5 mg/dL (0.70-1.30); LACTIC ACID, BLOOD 0.9 mmol/L (0.4-2.0); POTASSIUM 4.5 mmol/L (3.5-5.1); PROTEIN, TOTAL 6.7 g/dL (6.4-8.2)
[2024-11-03 18:34] LABS: BILIRUBIN, URINE NEGATIVE (negative); BLOOD/HGB, URINE TRACE-I (Negative); KETONE, URINE NEGATIVE (Negative); LEUK ESTERASE, URINE NEGATIVE (negative); NITRITE, URINE NEGATIVE (negative)
[2024-11-03 18:41] LABS: RED BLOOD CELLS, URINE 21-40 /hpf (0-5)
[2024-11-03 18:42] LABS: BACTERIA, URINE RARE /hpf (negative); CASTS, URINE NONE SEEN \\lpf; COLLECTION TYPE, URINE CLEAN CATCH; CRYSTALS, URINE NONE SEEN (0-1+); EPITHELIAL CELLS, URINE SQUAMOUS 1+ /lpf (0-1+); REFLEX CULTURE, URINE No (No)
[2024-11-03 19:45] VITALS: BP 134/82
--- NOTE | 2024-11-03 21:48 | EKG ---
[facility] [address] [facility] [place] [address] Signed Sinus rhythm with marked sinus arrhythmia ST \T\ T wave abnormality, consider inferolateral ischemia Abnormal ECG When compared with ECG of 21-APR-2024 15:12, premature atrial complexes are no longer present T wave inversion now evident in Inferior leads T wave inversion now evident in Lateral leads Confirmed by Vanna Cole MD () on 11/03/2024 9:48:26 PM Electronically Signed By: VANNA COLE MD 11/03/24 2148 PATIENT NAME: MICHELLE FELIX Electrocardiogram DATE OF : 40 PHYSICIAN: VANNA COLE MD REPORT #: [id number] REPORT IS CONFIDENTIAL AND NOT TO BE RELEASED WITHOUT AUTHORIZATION
== END 2024-11-03 20:29 | disposition home or self-care (01) ==
LOC: ED 16:35
PROVIDERS: Emergency Medicine
DX: E11.9 Type 2 diabetes mellitus without complications (principal); E78.00 Pure hypercholesterolemia, unspecified; I10 Essential (primary) hypertension; J44.9 Chronic obstructive pulmonary disease, unspecified; K21.9 Gastro-esophageal reflux disease without esophagitis; Z79.82 Long term (current) use of aspirin; Z79.84 Long term (current) use of oral hypoglycemic drugs; Z79.899 Other long term (current) drug therapy; Z86.73 Personal history of transient ischemic attack (TIA), and cerebral infarction without residual deficits
CPT/HCPCS: 36415; 51701; 70450; 71045; 80053; 81001; 82140; 83605; 84484; 85025; 93005; 93010; 99285-25